=== PATIENT | female | born 1940 | race Caucasian/White ===

== ENCOUNTER 2018-08-14 16:07 | Emergency (ER) | payer MEDICARE ==
[~2018-08-14] VITALS: Ht 165.1 cm; Wt 59.1 kg
[2018-08-14 16:13] VITALS: TEMP 98.4
[2018-08-14 17:03] LABS: BASO % 0.1 % (0.0-2.0); EOS % 0.4 % (0-4.0); GRAN # 5.8 (1.4-6.5); GRAN % 76.7 % (42.2-75.2); HEMATOCRIT 43.8 % (37.0-47.0); HEMOGLOBIN 14.4 g/dl (12.5-16.0); LYMPH # 1.1 (1.2-3.4); LYMPH % 14.9 % (20.0-51.0); MEAN CELL VOLUME 100 fl (80.0-100.0); MEAN CORPUSCULAR HEMOGLOBIN 33 pg (27.0-31.0); MEAN CORPUSCULAR HGB CONC 33 g/dl (33.0-37.0); MEAN PLATELET VOLUME 9.7 fl (7.4-10.4); MONO # 0.6 (0.1-0.6); MONO % 7.5 % (1.7-9.3); PLATELET COUNT 180 K/mm3 (130-400); RED BLOOD COUNT 4.38 M/mm3 (4.10-5.30); REDCELL DISTRIBUTION WIDTH-CV 12.3 % (11.5-14.5)
[2018-08-14 17:11] LABS: ALANINE AMINOTRANSFERASE 36 U/L (9-52); ALKALINE PHOSPHATASE 77 U/L (50-136); ANION GAP 3 mmol/L (7-16); AST,SGOT 36 U/L (15-37); BLOOD UREA NITROGEN 24 mg/dL (7-17); CALCIUM 9.1 mg/dL (8.4-10.2); CARBON DIOXIDE 28 mmol/L (22-30); CHLORIDE 112 mmol/L (98-107); GLUCOSE 130 mg/dL (74-106); LIPASE 54 U/L (23-300); POTASSIUM 4.5 mmol/L (3.4-5.0); SODIUM 144 mmol/L (137-145); TOTAL PROTEIN 7.5 gm/dL (6.4-8.2)
[2018-08-14 17:18] LABS: INR 2.6 (0.8-3.0); PROTHROMBIN TIME 29.2 SECONDS (9.7-12.8)
[2018-08-14 17:23] LABS: TROPONIN-I < 0.012 ng/mL (0.000-0.034)
[2018-08-14 21:11] VITALS: BP 133/95; PULSE 66
== END 2018-08-14 21:29 | disposition home or self-care (01) ==
LOC: COL.ER 16:07
PROVIDERS: Emergency Medicine
DX: R07.89 Other chest pain (principal); I10 Essential (primary) hypertension; E78.5 Hyperlipidemia, unspecified; Z90.710 Acquired absence of both cervix and uterus; Z87.891 Personal history of nicotine dependence
CPT/HCPCS: J7030

== ENCOUNTER 2019-02-08 19:29 | Emergency (ER) | payer MEDICARE ==
[~2019-02-08] VITALS: Ht 165.1 cm; Wt 59.1 kg
[2019-02-08 19:33] VITALS: TEMP 97.7
[2019-02-08] MEDS ORDERED: PRAVACHOL80 MG PO (19:48)
[2019-02-08] MEDS ORDERED: NORVASC 5MG5 MG/TAB PO (19:48)
[2019-02-08] MEDS ORDERED: LASIX 20MG TABL20 MG PO (19:49)
[2019-02-08] MEDS ORDERED: BROMFED DM COU118 ML PO (19:49)
[2019-02-08] MEDS ORDERED: ULTRAM 50MG TAB50 MG PO (19:49)
[2019-02-08] MEDS ORDERED: COUMADIN 3MG3 MG/TAB PO (19:49)
[2019-02-08 20:18] LABS: BASO % 0.4 % (0.0-2.0); EOS # 0.1 (0.0-0.7); EOS % 2.1 % (0-4.0); GRAN # 3.2 (1.4-6.5); GRAN % 59.6 % (42.2-75.2); HEMATOCRIT 41.6 % (37.0-47.0); HEMOGLOBIN 13.8 g/dl (12.5-16.0); LYMPH # 1.4 (1.2-3.4); LYMPH % 26.8 % (20.0-51.0); MEAN CELL VOLUME 97 fl (80.0-100.0); MEAN CORPUSCULAR HEMOGLOBIN 32 pg (27.0-31.0); MEAN CORPUSCULAR HGB CONC 33 g/dl (33.0-37.0); MEAN PLATELET VOLUME 9.5 fl (7.4-10.4); MONO # 0.6 (0.1-0.6); MONO % 10.9 % (1.7-9.3); PLATELET COUNT 179 K/mm3 (130-400); RED BLOOD COUNT 4.29 M/mm3 (4.10-5.30); REDCELL DISTRIBUTION WIDTH-CV 13.1 % (11.5-14.5)
[2019-02-08 20:22] LABS: INR 3.8 (0.8-3.0)
[2019-02-08 20:24] LABS: PROTHROMBIN TIME 46.3 SECONDS (9.7-12.8)
[2019-02-08 20:26] LABS: ALANINE AMINOTRANSFERASE 11 U/L (9-52); ALBUMIN 3.6 gm/dL (3.5-5.0); ALKALINE PHOSPHATASE 82 U/L (50-136); ANION GAP 9 mmol/L (7-16); AST,SGOT 31 U/L (15-37); BILIRUBIN,TOTAL 0.9 mg/dL (0.0-1.0); BLOOD UREA NITROGEN 24 mg/dL (7-17); CALCIUM 9.2 mg/dL (8.4-10.2); CARBON DIOXIDE 25 mmol/L (22-30); CHLORIDE 107 mmol/L (98-107); CREATININE, serum 0.95 (0.52-1.25); GLUCOSE 222 mg/dL (74-106); POTASSIUM 4.1 mmol/L (3.4-5.0); SODIUM 141 mmol/L (137-145)
[2019-02-08 20:45] LABS: TROPONIN-I < 0.012 ng/mL (0.000-0.035)
[2019-02-08 22:35] VITALS: BP 174/95; PULSE 68
== END 2019-02-08 22:35 | disposition home or self-care (01) ==
LOC: COL.ER 19:29
PROVIDERS: Emergency Medicine
DX: S00.33XA Contusion of nose, initial encounter (principal); S20.212A Contusion of left front wall of thorax, initial encounter; I48.91 Unspecified atrial fibrillation; I10 Essential (primary) hypertension; E78.00 Pure hypercholesterolemia, unspecified; Z85.028 Personal history of other malignant neoplasm of stomach; Z79.01 Long term (current) use of anticoagulants; Z95.0 Presence of cardiac pacemaker; W18.09XA Striking against other object with subsequent fall, initial encounter; Y92.009 Unspecified place in unspecified non-institutional (private) residence as the place of occurrence of the external cause

== ENCOUNTER 2019-05-25 09:42 | Day surgery (SDC) | payer MEDICARE ==
[~2019-05-25] VITALS: Ht 165.1 cm; Wt 58.6 kg
[~2019-05-25 09:42] MED LIST: BROMFED DM COU118 ML PO; COUMADIN 3MG3 MG/TAB PO; LASIX 20MG TABL20 MG PO; NORVASC 5MG5 MG/TAB PO; PRAVACHOL80 MG PO; ULTRAM 50MG TAB50 MG PO
[2019-05-25 10:58] VITALS: BP 117/81; PULSE 78; TEMP 98.1
[2019-05-25 12:18] VITALS: BP 142/80; PULSE 76; TEMP 96.6
[2019-05-25 12:33] VITALS: BP 163/86; PULSE 82
[2019-05-25 12:48] VITALS: BP 158/85; PULSE 81
--- NOTE | 2019-05-25 13:36 | NUR ---
pt returned from procedure room into bathroom. PT STATED HAVING TO GO TO THE BATHROOM. HAVING LOOSE STOOLS AND FLATUS. PT DENIES PAIN OR NAUSEA. PT THEN TAKEN TO BAY 4 PER W/C. PT UNSTEADY WHILE STANDING. VSS, LUNGS CLEAR, BOWEL SOUNDS ACTIVE X4 QUADRANT. COKE COLA OFFERED AND TOLERATED. OFFERED APPLESAUCE. PT TOLERATING A FEW BITES WELL. AT BESIDE, CALL LIGHT WITHIN REACH, WILL MONITOR PROGRESSION.
--- NOTE | 2019-05-25 13:50 | NUR ---
PT TOLERATING APPLESAUCE AND SODA WITHOUT C/O NAUSEA/VOMITING. DENIES PAIN. HS AMBULATED TO THE BATHROOM X1 ASSIST. PASSING GAS AND SOFT BROWN STOOL. DENIES PAIN. IVF DC'D. WILL MONITOR PROGRESS.
--- NOTE | 2019-05-25 13:54 | NUR ---
PT UP AMBULATING TO THE BATHROOM. HAVING GAS, LESS STOOL NOTED. PT CONT TO DENY PAIN OR NAUSEA. SIPPING ON SODA. IV DC'D PER RIGHT WRIST AND TOLERATED WELL. DISMISSAL INSTRUCTIONS GIVEN TO PATIENT AND , BOTH VOICE UNDERSTANDING. PT IS DISCHARGED PER W/C FROM HOSPITAL INTO PT FAMILY VEHICLE.
== END 2019-05-25 14:04 | disposition home or self-care (01) ==
LOC: SDCO 09:42
DX: D12.2 Benign neoplasm of ascending colon (principal); K21.0 Gastro-esophageal reflux disease with esophagitis; K31.89 Other diseases of stomach and duodenum; K44.9 Diaphragmatic hernia without obstruction or gangrene; K57.30 Diverticulosis of large intestine without perforation or abscess without bleeding; K63.5 Polyp of colon; J44.9 Chronic obstructive pulmonary disease, unspecified; E78.00 Pure hypercholesterolemia, unspecified; I10 Essential (primary) hypertension; I48.91 Unspecified atrial fibrillation; Z86.010 Personal history of colon polyps; Z88.3 Allergy status to other anti-infective agents; Z90.710 Acquired absence of both cervix and uterus; Z87.891 Personal history of nicotine dependence; Z88.6 Allergy status to analgesic agent; Z85.028 Personal history of other malignant neoplasm of stomach
CPT/HCPCS: J2704; J7030

== ENCOUNTER 2019-07-25 12:18 | Inpatient (IN) | payer MEDICARE ==
[~2019-07-25] VITALS: Ht 165.2 cm; Wt 61.3 kg
[2019-07-25 13:08] LABS: BASO % 0.2 % (0.0-2.0); EOS # 0.1 (0.0-0.7); EOS % 1.2 % (0-4.0); GRAN # 3.4 (1.4-6.5); GRAN % 64.5 % (42.2-75.2); HEMATOCRIT 38.3 % (37.0-47.0); HEMOGLOBIN 12.6 g/dl (12.5-16.0); LYMPH # 1.2 (1.2-3.4); LYMPH % 23.3 % (20.0-51.0); MEAN CELL VOLUME 102 fl (80.0-100.0); MEAN CORPUSCULAR HEMOGLOBIN 34 pg (27.0-31.0); MEAN CORPUSCULAR HGB CONC 33 g/dl (33.0-37.0); MEAN PLATELET VOLUME 9.8 fl (7.4-10.4); MONO # 0.6 (0.1-0.6); MONO % 10.6 % (1.7-9.3); PLATELET COUNT 150 K/mm3 (130-400); RED BLOOD COUNT 3.76 M/mm3 (4.10-5.30); REDCELL DISTRIBUTION WIDTH-CV 13.2 % (11.5-14.5)
[2019-07-25 13:12] LABS: ALANINE AMINOTRANSFERASE 45 U/L (9-52); ALBUMIN 3.8 gm/dL (3.5-5.0); ALKALINE PHOSPHATASE 81 U/L (50-136); ANION GAP 6 mmol/L (7-16); AST,SGOT 46 U/L (15-37); BILIRUBIN,TOTAL 0.7 mg/dL (0.0-1.0); BLOOD UREA NITROGEN 27 mg/dL (7-17); CARBON DIOXIDE 29 mmol/L (22-30); CHLORIDE 109 mmol/L (98-107); CREATININE, serum 0.71 (0.52-1.25); GLUCOSE 112 mg/dL (74-106); POTASSIUM 4.1 mmol/L (3.4-5.0); SODIUM 143 mmol/L (137-145); TOTAL PROTEIN 7.1 gm/dL (6.4-8.2)
[2019-07-25 13:21] LABS: INR 1.8 (0.8-3.0); PROTHROMBIN TIME 21.2 SECONDS (9.7-12.8)
[2019-07-25 13:24] LABS: TROPONIN-I < 0.012 ng/mL (0.000-0.035)
[2019-07-25 16:56] VITALS: BP 104/71; PULSE 121; TEMP 97.8
--- NOTE | 2019-07-25 17:08 | NUR ---
Pt arrived to room 355 from ED. She is awake and A/Ox4, accompanied by her . She transfers without difficulty. Saline lock to left AC is free of complications. She remains on 2L O2 per NC, resp are slighly labored at rest. Meds/allergies/pharm reviewed and verfied. GISSELL Packer at bedside.
[2019-07-25] MEDS ORDERED: PROAIR HFA0.09 MG/AC IH (17:19)
[2019-07-25] MEDS ORDERED: 00186-0372-20 IH (17:19)
[2019-07-25 19:59] VITALS: BP 101/60; PULSE 82; TEMP 99
--- NOTE | 2019-07-25 22:20 | NUR ---
PT IN BED WITH HEAD OF BED ELEVATED. TELE WITH A-FLUTTER WITH RATE BETWEEN 90 - 120. O2 AT 2L/NC. REPORTS GETTING SOA WHEN AMBULATING TO THE BATHROOM. LOPRESSOR 5MG IV GIVEN SCHEDULED. INT INTACT IN L AC. NO EDEMA, NO NAUSEA. CALL LIGHT IN REACH. WATCHES TV.
[2019-07-25 23:24] VITALS: BP 128/75; PULSE 60; TEMP 98.6
[2019-07-26] VITALS (7 sets, daily range): BP systolic 110–131; BP diastolic 64–86; PULSE 68–133; TEMP 97.6–98.6
--- NOTE | 2019-07-26 06:30 | NUR ---
Pt resting with eyes closed. Awakens to verbal stimuli. Lopressor 5mg IV given as scheduled. States she didn't have a very good nigt. Tele showing pt still in A-flutter with HR between 90's to low 100's. INT continues to work well in L FA. Call light in reach.
[2019-07-26 07:17] LABS: BASO % 0.4 % (0.0-2.0); EOS # 0.1 (0.0-0.7); EOS % 2.2 % (0-4.0); GRAN # 3.2 (1.4-6.5); HEMATOCRIT 38.6 % (37.0-47.0); HEMOGLOBIN 12.9 g/dl (12.5-16.0); LYMPH # 1.4 (1.2-3.4); LYMPH % 25.5 % (20.0-51.0); MEAN CELL VOLUME 101 fl (80.0-100.0); MEAN CORPUSCULAR HEMOGLOBIN 34 pg (27.0-31.0); MEAN CORPUSCULAR HGB CONC 33 g/dl (33.0-37.0); MONO # 0.7 (0.1-0.6); MONO % 12.7 % (1.7-9.3); PLATELET COUNT 151 K/mm3 (130-400); RED BLOOD COUNT 3.83 M/mm3 (4.10-5.30); REDCELL DISTRIBUTION WIDTH-CV 13.1 % (11.5-14.5)
[2019-07-26 07:21] LABS: INR 1.6 (0.8-3.0); PROTHROMBIN TIME 18.9 SECONDS (9.7-12.8)
[2019-07-26 07:32] LABS: CALCIUM 9.1 mg/dL (8.4-10.2); CREATININE, serum 0.75 (0.52-1.25); MAGNESIUM 1.8 mg/dL (1.6-2.3); POTASSIUM 3.7 mmol/L (3.4-5.0)
--- NOTE | 2019-07-26 08:30 | NUR ---
Assessment complete. Pt resting in bed with eyes closed, awakens briefly to verbal stimuli, denies pain or needs. O2 at 2 L/min via NC. Call light in reach.
--- NOTE | 2019-07-26 15:08 | NUR ---
SERGIO met with the patient and her , Greg to discuss a discharge plan. The patient lives in [place] with Greg. The patient uses oxygen she bought on her own, did not use insurance for purchase. The patient reports independence with ADLs. The patient's PCP is Dr. Elicia Morrison and patient receives medications from [facility] via mail and [facility] in with no difficulties. The patient does not have advanced directives in the EMR. A DPOA-HC form was left with the patient. The patient plans to return home upon discharge with Greg providing transportation. There are no additional needs at this time.
--- NOTE | 2019-07-26 15:26 | NUR ---
Pt to physical laboratory assistant for procedure via bed.
--- NOTE | 2019-07-26 21:00 | NUR ---
patient in A flutter with RVR. rate 100. patient asympotomatic. VSS. will continue to monitor.
[2019-07-27] VITALS (13 sets, daily range): BP systolic 77–145; BP diastolic 44–78; PULSE 62–110; TEMP 97.6–98.9
--- NOTE | 2019-07-27 01:26 | NUR ---
patient doing well throughout night. denies pain or need for pain medication. states she is tired. took scheduled medications without difficulty. sotolol was started tonight. NPO per lexiscan stress test tomorrow morning. INT to hand is patent and flushes with ease. denies any further needs. will continue to monitor.
[2019-07-27 07:25] LABS: BASO % 0.4 % (0.0-2.0); EOS # 0.1 (0.0-0.7); EOS % 1.5 % (0-4.0); GRAN # 3.2 (1.4-6.5); GRAN % 62.3 % (42.2-75.2); HEMATOCRIT 40.9 % (37.0-47.0); HEMOGLOBIN 13.9 g/dl (12.5-16.0); LYMPH # 1.2 (1.2-3.4); LYMPH % 22.7 % (20.0-51.0); MEAN CELL VOLUME 99 fl (80.0-100.0); MEAN CORPUSCULAR HEMOGLOBIN 34 pg (27.0-31.0); MEAN CORPUSCULAR HGB CONC 34 g/dl (33.0-37.0); MEAN PLATELET VOLUME 9.6 fl (7.4-10.4); MONO # 0.7 (0.1-0.6); MONO % 12.9 % (1.7-9.3); PLATELET COUNT 167 K/mm3 (130-400); RED BLOOD COUNT 4.12 M/mm3 (4.10-5.30); REDCELL DISTRIBUTION WIDTH-CV 12.9 % (11.5-14.5)
[2019-07-27 07:30] LABS: INR 1.8 (0.8-3.0); PROTHROMBIN TIME 21.2 SECONDS (9.7-12.8)
[2019-07-27 07:41] LABS: CALCIUM 9.5 mg/dL (8.4-10.2); CREATININE, serum 0.86 (0.52-1.25)
--- NOTE | 2019-07-27 08:00 | NUR ---
Assessment complete. Pt sitting up in bed, A&O x 4. Breath sounds CTAB. Heart sounds irregular. BS active x 4. Pt denies pain, reports return of increased shortness of breath. Saline lock IV to left AC, no s/s of infiltration or phlebitis. POC reviewed with pt. No further needs reported. Call light in reach.
--- NOTE | 2019-07-27 09:15 | NUR ---
[facility] to [facility] for testing via .
--- NOTE | 2019-07-27 14:52 | NUR ---
First visit from the paper pattern inspector. No needs right now.
[2019-07-28 03:22] VITALS: BP 113/61; PULSE 50; TEMP 98.6
[2019-07-28 07:25] LABS: BASO % 0.2 % (0.0-2.0); EOS # 0.1 (0.0-0.7); EOS % 2.2 % (0-4.0); GRAN # 2.1 (1.4-6.5); GRAN % 46.1 % (42.2-75.2); HEMATOCRIT 39.9 % (37.0-47.0); HEMOGLOBIN 13.3 g/dl (12.5-16.0); LYMPH # 1.7 (1.2-3.4); LYMPH % 36.5 % (20.0-51.0); MEAN CELL VOLUME 101 fl (80.0-100.0); MEAN CORPUSCULAR HEMOGLOBIN 34 pg (27.0-31.0); MEAN CORPUSCULAR HGB CONC 33 g/dl (33.0-37.0); MONO # 0.7 (0.1-0.6); MONO % 14.8 % (1.7-9.3); PLATELET COUNT 157 K/mm3 (130-400); RED BLOOD COUNT 3.95 M/mm3 (4.10-5.30); REDCELL DISTRIBUTION WIDTH-CV 12.8 % (11.5-14.5)
[2019-07-28 07:30] LABS: INR 2.6 (0.8-3.0); PROTHROMBIN TIME 30.7 SECONDS (9.7-12.8)
[2019-07-28 07:35] LABS: CALCIUM 9.2 mg/dL (8.4-10.2); CREATININE, serum 0.89 (0.52-1.25)
--- NOTE | 2019-07-28 08:00 | NUR ---
Patient in bed resting. Alert and oriented x 3. Shift assessment complete. Patient denies pain or further needs at this time. INT to right hand patent.
[2019-07-28 08:45] VITALS: BP 119/65; PULSE 77; TEMP 97.6
[2019-07-28 12:00] VITALS: BP 141/86; PULSE 90; TEMP 97.8
[2019-07-28] MEDS ORDERED: BETAPACE 80MG80 MG PO (14:05)
[2019-07-28] MEDS ORDERED: LASIX 20MG TABL20 MG PO (14:06)
[2019-07-28 15:46] VITALS: BP 139/69; PULSE 62; TEMP 97.9
--- NOTE | 2019-07-28 17:15 | NUR ---
Discharge education provided to patient. Educated on new medications and follow up appointments. All questions answered. INT to right hand discontinued. Denies further needs at this time. Patient out by wheelchair with spouse.
== END 2019-07-28 17:15 | disposition home or self-care (01) | DRG 308 ==
LOC: COL.ER 12:18 → MEDICAL 14:51
PROVIDERS: Family Medicine; Nurse Practitioner; Nurse Practitioner Family; Physician Assistant; ADMIT Internal Medicine
DX: I48.92 Unspecified atrial flutter (principal); I50.23 Acute on chronic systolic (congestive) heart failure; J96.10 Chronic respiratory failure, unspecified whether with hypoxia or hypercapnia; I48.0 Paroxysmal atrial fibrillation; I95.9 Hypotension, unspecified; J44.9 Chronic obstructive pulmonary disease, unspecified; I11.0 Hypertensive heart disease with heart failure; Z85.028 Personal history of other malignant neoplasm of stomach; Z90.710 Acquired absence of both cervix and uterus; Z95.0 Presence of cardiac pacemaker; Z93.1 Gastrostomy status
CPT/HCPCS: 99222-AI; 99232-AI; 99239; A9500; J1160; J1650; J1940; J2704; J2785

== ENCOUNTER 2019-08-18 | Inpatient (IN) | payer MEDICARE ==
[~2019-08-18] VITALS: Ht 165.1 cm; Wt 61.8 kg
[~2019-08-18] MED LIST changes: +00186-0372-20 IH; +BETAPACE 80MG80 MG PO; +PROAIR HFA0.09 MG/AC IH
[2019-08-18] MEDS ORDERED: NORVASC 5MG5 MG/TAB PO (08:42)
[2019-08-18] MEDS ORDERED: HAIRSKINNAILS PO (08:44)
[2019-08-18 10:13] LABS: HEMATOCRIT 42.9 % (37.0-47.0); HEMOGLOBIN 14.2 g/dl (12.5-16.0); MEAN CELL VOLUME 101 fl (80.0-100.0); MEAN CORPUSCULAR HEMOGLOBIN 33 pg (27.0-31.0); MEAN CORPUSCULAR HGB CONC 33 g/dl (33.0-37.0); MEAN PLATELET VOLUME 9.6 fl (7.4-10.4); PLATELET COUNT 148 K/mm3 (130-400); RED BLOOD COUNT 4.27 M/mm3 (4.10-5.30); REDCELL DISTRIBUTION WIDTH-CV 12.4 % (11.5-14.5)
[2019-08-18 10:23] LABS: INR 4.6 (0.8-3.0)
[2019-08-18 10:27] LABS: CALCIUM 8.8 mg/dL (8.4-10.2); CREATININE, serum 0.68 (0.52-1.25); POTASSIUM 4.5 mmol/L (3.4-5.0)
[2019-08-18 10:29] LABS: PARTIAL THROMBOPLASTIN TIME 54.7 SECONDS (26.0-37.0); PROTHROMBIN TIME 56.5 SECONDS (9.7-12.8)
[2019-08-18 10:56] LABS: THYROID STIMULATING HORMONE 1.38 uIU/mL (0.465-4.680)
--- NOTE | 2019-08-18 12:30 | NUR ---
REPORT GIVEN TO FARNAZ HALL ON MEDICAL FLOOR. HE WAS MADE AWARE OF PT'S CRITICAL PTT AND INR VALUES THAT WERE REPORTED TO ME FROM THE LAB AT 1029. ISABEL ALSO MADE AWARE THAT AMIODARONE WAS GIVEN AROUND 1200 AND PHARMACY HAS ADJUSTED THE TIMES FOR FUTURE DOSAGES. OXANA AT PT'S BEDSIDE.
--- NOTE | 2019-08-18 14:16 | NUR ---
PFT will be completed Wednesday at 10:00. Marques Nix, TECHNICAL LABORATORY ASST
[2019-08-18 15:56] VITALS: BP 115/68; PULSE 63; TEMP 97
[2019-08-18 19:06] VITALS: BP 109/53; PULSE 92; TEMP 97.8
--- NOTE | 2019-08-18 19:10 | NUR ---
patient arrived to Medical floor room 315 at this time, she is alert/oriented, present in room, denies needs
--- NOTE | 2019-08-18 20:15 | NUR ---
Report rcvd from FARNAZ Schilling. Pt sitting in bed. No c/o pain or discomfort at this time. Assessment completed. Current plan for pt is x5 days on amiodarone. No further concern at this time. Pt call light and phone within reach.
[2019-08-18 23:51] VITALS: BP 119/73; PULSE 74; TEMP 98
[2019-08-19 04:07] VITALS: BP 101/57; PULSE 89; TEMP 97.9
--- NOTE | 2019-08-19 07:14 | NUR ---
Report given to FARNAZ Zabala. No further concerns.
[2019-08-19 08:13] LABS: BASO % 0.3 % (0.0-2.0); EOS # 0.1 (0.0-0.7); EOS % 1.5 % (0-4.0); GRAN # 4.4 (1.4-6.5); GRAN % 65.9 % (42.2-75.2); HEMATOCRIT 39.7 % (37.0-47.0); HEMOGLOBIN 13.2 g/dl (12.5-16.0); LYMPH # 1.3 (1.2-3.4); LYMPH % 19.9 % (20.0-51.0); MEAN CELL VOLUME 100 fl (80.0-100.0); MEAN CORPUSCULAR HEMOGLOBIN 33 pg (27.0-31.0); MEAN CORPUSCULAR HGB CONC 33 g/dl (33.0-37.0); MONO # 0.8 (0.1-0.6); MONO % 12.1 % (1.7-9.3); PLATELET COUNT 140 K/mm3 (130-400); RED BLOOD COUNT 3.96 M/mm3 (4.10-5.30); REDCELL DISTRIBUTION WIDTH-CV 12.5 % (11.5-14.5)
[2019-08-19 08:30] VITALS: BP 115/76; PULSE 67; TEMP 97.7
[2019-08-19 08:54] LABS: ALBUMIN 3.7 gm/dL (3.5-5.0); BILIRUBIN,TOTAL 1.2 mg/dL (0.0-1.0); CALCIUM 8.8 mg/dL (8.4-10.2); CREATININE, serum 0.75 (0.52-1.25); TOTAL PROTEIN 6.9 gm/dL (6.4-8.2)
--- NOTE | 2019-08-19 09:00 | NUR ---
Assessment complete. Pt sitting up in bed, A&O x 4. Breath sounds CTAB. BS active x 4. Pt denies pain or needs at this time. Saline lock IV to left wrist without s/s of complications. POC reviewed with pt. Call light in reach.
--- NOTE | 2019-08-19 10:49 | NUR ---
Visited, listened, and provided spiritual care.
[2019-08-19 11:54] VITALS: BP 137/60; PULSE 74; TEMP 97.8
--- NOTE | 2019-08-19 13:23 | NUR ---
Plan: Patient plans to return home with her in [place]. Assess: Patient reports that she resides in with her spouse Mason [phone] or . Patient reports that she uses 02 at home 2 liters. Patient reports that her spouse will transport her home. Patient reports [facility] in [place] for RX. Patient denies having a PCP. Patient indicated that she has care concerns from the overnight. SW notified house of concerns. Action: No additional needs identifed. SW educated patient on additonal resources.
[2019-08-19 15:50] VITALS: BP 129/81; PULSE 56; TEMP 97.6
--- NOTE | 2019-08-19 17:34 | NUR ---
Pt has been ambulating in rm and hallway with steady gait intermittently throughout the shift, denies c/o or needs.
[2019-08-19 19:52] VITALS: BP 96/62; PULSE 80; TEMP 98.2
--- NOTE | 2019-08-19 20:00 | NUR ---
Report received from FARNAZ Zabala. Pt sitting up in bed with at bedside. Alert and oriented. Denies any pain or discomfort at this time. Meds given as ordered. INT to LW intact, patent, dressing CDI. Needs met. Call light within reach.
[2019-08-20] VITALS (7 sets, daily range): BP systolic 85–109; BP diastolic 43–76; PULSE 65–87; TEMP 97.8–98.6
--- NOTE | 2019-08-20 06:51 | NUR ---
Report given to FARNAZ Zabala.
[2019-08-20 06:57] LABS: BASO % 0.1 % (0.0-2.0); EOS # 0.1 (0.0-0.7); EOS % 1.4 % (0-4.0); GRAN # 4.5 (1.4-6.5); GRAN % 62.4 % (42.2-75.2); HEMATOCRIT 40.9 % (37.0-47.0); HEMOGLOBIN 13.8 g/dl (12.5-16.0); LYMPH # 1.6 (1.2-3.4); MEAN CELL VOLUME 100 fl (80.0-100.0); MEAN CORPUSCULAR HEMOGLOBIN 34 pg (27.0-31.0); MEAN CORPUSCULAR HGB CONC 34 g/dl (33.0-37.0); MEAN PLATELET VOLUME 10.1 fl (7.4-10.4); MONO % 13.8 % (1.7-9.3); PLATELET COUNT 152 K/mm3 (130-400); REDCELL DISTRIBUTION WIDTH-CV 12.6 % (11.5-14.5)
[2019-08-20 07:10] LABS: BILIRUBIN,TOTAL 1.4 mg/dL (0.0-1.0); CALCIUM 9.2 mg/dL (8.4-10.2); CREATININE, serum 0.91 (0.52-1.25); POTASSIUM 4.2 mmol/L (3.4-5.0); TOTAL PROTEIN 7.5 gm/dL (6.4-8.2)
[2019-08-20 07:15] LABS: INR 1.6 (0.8-3.0); PROTHROMBIN TIME 18.7 SECONDS (9.7-12.8)
--- NOTE | 2019-08-20 07:38 | NUR ---
Assessment complete. Pt sitting up in bed, drowsy, alert to stimuli, oriented x 4. Physical assessment unremarkable. O2 at 2 L/min via NC. Pt denies pain or needs at this time. Call light in reach.
--- NOTE | 2019-08-20 13:30 | NUR ---
Pt ambulating in hallway accompanied by PUBLIC SAF[employer]Y POLICE. Pt with increasing dysnea, uses W/C to return to room.
[2019-08-20 13:48] LABS: RHEUMATOID FACTOR-SCREEN <15 IU/mL (0-29)
--- NOTE | 2019-08-20 18:50 | NUR ---
Report with FARNAZ Ojeda. Pt sitting up in bed, denies needs at this time. Call light in reach.
--- NOTE | 2019-08-20 20:05 | NUR ---
Shift assessment complete. Pt resting in bed, awake, a&o, cooperative c cares. Pt denies pain or other c/o. INT patent. O2 per NC. Pt denies needs at this time. Call light in reach, will continue to monitor.
[2019-08-21] VITALS (13 sets, daily range): BP systolic 105–144; BP diastolic 49–86; PULSE 56–100; TEMP 97.5–98.4
[2019-08-21 06:47] LABS: BASO % 0.4 % (0.0-2.0); EOS # 0.1 (0.0-0.7); EOS % 1.8 % (0-4.0); GRAN # 2.9 (1.4-6.5); GRAN % 54.2 % (42.2-75.2); HEMATOCRIT 40.8 % (37.0-47.0); HEMOGLOBIN 13.6 g/dl (12.5-16.0); LYMPH # 1.5 (1.2-3.4); LYMPH % 27.7 % (20.0-51.0); MEAN CELL VOLUME 100 fl (80.0-100.0); MEAN CORPUSCULAR HEMOGLOBIN 33 pg (27.0-31.0); MEAN CORPUSCULAR HGB CONC 33 g/dl (33.0-37.0); MONO # 0.9 (0.1-0.6); MONO % 15.7 % (1.7-9.3); PLATELET COUNT 143 K/mm3 (130-400); RED BLOOD COUNT 4.07 M/mm3 (4.10-5.30); REDCELL DISTRIBUTION WIDTH-CV 12.6 % (11.5-14.5)
[2019-08-21 06:57] LABS: INR 1.2 (0.8-3.0); PROTHROMBIN TIME 14.1 SECONDS (9.7-12.8)
[2019-08-21 07:03] LABS: ALBUMIN 3.9 gm/dL (3.5-5.0); BILIRUBIN,TOTAL 1.2 mg/dL (0.0-1.0); CALCIUM 9.2 mg/dL (8.4-10.2); CREATININE, serum 1.01 (0.52-1.25); POTASSIUM 4.1 mmol/L (3.4-5.0); TOTAL PROTEIN 7.3 gm/dL (6.4-8.2)
--- NOTE | 2019-08-21 11:02 | NUR ---
Assessment completed, alert/oriented, vital signs stable, stated she "feels about the same", still gets SOA easily, scheduled for lung mass bx today with radiology, [facility] is puting heart cath on hold untill Wednesdays, lungs CTA/ diminished, heart irreg/ A.fib on tele, present in room, patient NPo, they understand plan of care, deny othe needs at this time
--- NOTE | 2019-08-21 12:51 | NUR ---
First visit from the wood calker. No needs right now.
--- NOTE | 2019-08-21 14:00 | NUR ---
PT BROUGHT DOWN IN HER BED . PT TRANSFERED TO CT TABLE AND MONITORING EQUIPMENT PLACED. IMAGING DONE AND SENT TO .
--- NOTE | 2019-08-21 14:20 | NUR ---
PT HAD INTERMITTENT A FIB ON THE MONITOR. PT WAS TURNED ON HER BACK AND SCANNED. VERY SMALL PNUEMOTHORAX NOTED. WILL HAVE CXR IN 1 HOUR.
--- NOTE | 2019-08-21 14:35 | NUR ---
PT TAKEN TO HER ROOM IN HER BED. FAMILY PRESENT. REPORTED TO ISABEL HER NURSE THAT SHE IS SETTLED IN HER ROOM, O2 @ 2L/NC AND WILL NEED CXR IN 1 HOUR.
--- NOTE | 2019-08-21 15:55 | NUR ---
Correctional Maintenance Technician met with patient to discuss discharge plan. Patient lives in [place] with her , Greg (ph#[phone]). Patient sees Nurse Practitioner, Elicia Morrison for primary care and obtains medications from [facility] pharmacy with no difficulty. Patient uses oxygen at home and reports her purchased needed equipment online. Patient does not have Advance Directives and is not interested in setting them up at this time. Patient plans to return home upon discharge.
[2019-08-21 20:10] LABS: ANA SCREEN with REFLEX Positive (Negative)
--- NOTE | 2019-08-21 20:30 | NUR ---
Initial assessment done- denies any pain, tele on- afib/paced, sitting up in bed, just finished a late supper, o2 at 2L/nc, no requests at this time, VSS
[2019-08-22 04:17] VITALS: BP 109/54; PULSE 86; TEMP 98.3
--- NOTE | 2019-08-22 06:00 | NUR ---
Quiet night- slept well, VSS, no requests throughout the night- o2 at 2L/nc
[2019-08-22 07:06] LABS: INR 1.1 (0.8-3.0); PROTHROMBIN TIME 12.5 SECONDS (9.7-12.8)
[2019-08-22 07:12] LABS: ALBUMIN 4.3 gm/dL (3.5-5.0); CALCIUM 9.6 mg/dL (8.4-10.2); CREATININE, serum 1.03 (0.52-1.25); MAGNESIUM 2.1 mg/dL (1.6-2.3); POTASSIUM 4.3 mmol/L (3.4-5.0)
[2019-08-22 07:27] LABS: BASO % 0.4 % (0.0-2.0); EOS # 0.1 (0.0-0.7); EOS % 2.1 % (0-4.0); GRAN # 2.5 (1.4-6.5); GRAN % 52.6 % (42.2-75.2); HEMATOCRIT 43.3 % (37.0-47.0); HEMOGLOBIN 14.3 g/dl (12.5-16.0); LYMPH # 1.3 (1.2-3.4); LYMPH % 27.5 % (20.0-51.0); MEAN CELL VOLUME 101 fl (80.0-100.0); MEAN CORPUSCULAR HEMOGLOBIN 33 pg (27.0-31.0); MEAN CORPUSCULAR HGB CONC 33 g/dl (33.0-37.0); MEAN PLATELET VOLUME 10.5 fl (7.4-10.4); MONO # 0.8 (0.1-0.6); MONO % 17.2 % (1.7-9.3); PLATELET COUNT 151 K/mm3 (130-400); REDCELL DISTRIBUTION WIDTH-CV 12.7 % (11.5-14.5)
[2019-08-22 07:51] VITALS: BP 102/66; PULSE 102; TEMP 98.2
--- NOTE | 2019-08-22 08:42 | NUR ---
Assessment completed, alert/oriented, vital signs stable, denies pain this morning, still feeling SOA with exertion , lungs are CTA but diminished throughout, heart Irregular/ paced with underlying A.fib on tele, distal pulses are palpable, patient reports feeling "about the same, NO worse and No better", she is still on 2L.O2, she is sitting up in bed eating breakfast, denies othr needs at this time, will continue to monitor
[2019-08-22 11:26] VITALS: BP 89/44; PULSE 69; TEMP 98.7
[2019-08-22 12:51] LABS: ANGIOTENSIN CONVERTING ENZYME 30 U/L (16 - 85)
[2019-08-22 16:08] VITALS: BP 102/62; PULSE 71; TEMP 97.8
--- NOTE | 2019-08-22 19:36 | NUR ---
Assessment complete. In bed, watching tv. Voices understanding regarding heart cath tomorrow. Denies needs at this time.
[2019-08-22 19:59] VITALS: BP 113/59; PULSE 77; TEMP 97.8
[2019-08-22 23:39] VITALS: BP 111/61; PULSE 72; TEMP 97.9
[2019-08-23] VITALS (13 sets, daily range): BP systolic 90–117; BP diastolic 44–76; PULSE 84–115; TEMP 97.5–98
[2019-08-23 06:28] LABS: HEMATOCRIT 40.9 % (37.0-47.0); HEMOGLOBIN 13.7 g/dl (12.5-16.0); MEAN CELL VOLUME 100 fl (80.0-100.0); MEAN CORPUSCULAR HEMOGLOBIN 34 pg (27.0-31.0); MEAN CORPUSCULAR HGB CONC 34 g/dl (33.0-37.0); PLATELET COUNT 150 K/mm3 (130-400); RED BLOOD COUNT 4.09 M/mm3 (4.10-5.30); REDCELL DISTRIBUTION WIDTH-CV 12.6 % (11.5-14.5)
[2019-08-23 06:37] LABS: CALCIUM 9.2 mg/dL (8.4-10.2); CREATININE, serum 1.05 (0.52-1.25); MAGNESIUM 2.1 mg/dL (1.6-2.3); POTASSIUM 4.2 mmol/L (3.4-5.0); TOTAL PROTEIN 7.6 gm/dL (6.4-8.2)
[2019-08-23 06:53] LABS: PROTHROMBIN TIME 11.2 SECONDS (9.7-12.8)
[2019-08-23 06:56] LABS: PARTIAL THROMBOPLASTIN TIME 30.3 SECONDS (26.0-37.0)
[2019-08-23 07:00] LABS: BAND 8 % (0-10); LYMPHOCYTE 27 % (20.0-51.0); NEUTROPHILS 51 % (42.0-75.2); PLATELET ESTIMATE NORMAL (NORMAL)
--- NOTE | 2019-08-23 09:40 | NUR ---
Patient left the floor at this time for labor supervisor. Consents signed. No other needs at this time. at bedside. Patient is tearful
--- NOTE | 2019-08-23 09:47 | NUR ---
AM assessment completed. Patient is awake; alert and oriented x 3. Denies any pain/discomfort. Skin w/d. Color pale/pink. Patient is tearful this AM due to increasing things going on at this time. Cardiology here and will take patient soon for heart cath. Lungs diminshed in bases. Resp even/unlabored. Patient has non-productive cough. HR strong/irregular. Abd soft with bowel sounds x 4 quads. Patient reports no problems urinating. Call light in place. [place] fluids hanging and infusing to left hand. No other needs at this time. at bedside
--- NOTE | 2019-08-23 10:00 | NUR ---
SEE MERGE FOR MEDICATION ADMINISTRATION TIMES AND INTRA AND POST SEDATION ASSESSMENTS.
[2019-08-23] MEDS ORDERED: CORDARONE200 MG/TAB PO ×2 (11:13→11:14)
[2019-08-23] MEDS ORDERED: TOPROL XL 50MG50 MG PO (11:15)
[2019-08-23] MEDS ORDERED: LASIX 20MG TABL20 MG PO (11:16)
[2019-08-23] MEDS ORDERED: INCRUSE EL62.5 MCG/A IH (11:19)
--- NOTE | 2019-08-23 11:37 | NUR ---
BEDSIDE HAND OFF REPORT GIVEN TO FARNAZ CHISHOLM. HEMOSTASIS MAINTAINED TO R GROIN. DRESSING C/D/I. SKIN SOFT. PEDAL PULSES 2+, CAP REFILL <3. PT DROWSY, BUT RESPONDS TO VERBAL COMMANDS. AT BEDSIDE. IV IN PLACE WITH NS INFUSING AT 100ML/HR
--- NOTE | 2019-08-23 11:53 | NUR ---
Patient returned from [employer] [facility] [employer]. FARNAZ Quiroz from laboratory scientist expressed this nurses concern to Dr. Dawson regarding flat time; as patient has coughing episodes with her wanting to sit up. If needed may try bilateral knee immobilizer's to encourage patient from sitting up. Patient is very drowsy following procedure. There was an failed attempt of cardioversion x 3 with 200J per shock. Dressing CD&I. Area soft and free of hematoma. at bedside. Instructions given to about flat time. VS taken 117/68 - 91 - 18- 94% on 2L/NC
--- NOTE | 2019-08-23 12:10 | NUR ---
Met with pt's after her return from the minilab operator. Family has just recieved the news that she has cancer in her lung diagnosed from her biopsy. 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 Pt is still quite drowsy and unable to participate in the discussion. Dr Vidales advises me that most of her workup for this will be done as an outpatient. I did talk about general cancer care, chemotherapy vs radiation therapy vs other management options. Pt is 78 years old and per may or may not pursue treatment..."that will be up to her". I encouraged him to write down some of the questions that they have when meeting with the doctors. He is wisely waiting for treatment options to be presented and then they will decide from there what she would want to do. Much support provided and will be available to this family as needed.
--- NOTE | 2019-08-23 13:26 | NUR ---
Patient continues to sleep. at bedside
--- NOTE | 2019-08-23 15:45 | NUR ---
Flat time is up. Patient assisted up to sitting position without difficulty. No c/o dizziness or lightheadness. Dressing to right groin CD&I without any noted s/s of hematoma
--- NOTE | 2019-08-23 17:53 | NUR ---
INT discontinued and tele removed. Patient is ready for discharge. Dressing to groin CD&I without any drainage. Area soft. Cardiac Cath discharge instructions reviewed with patient and her . No other needs at this time
--- NOTE | 2019-08-23 18:20 | NUR ---
Discharge instructions reviewed with patient and her . Questions answered. Patient discharged to home at this time
[2019-08-23 21:48] LABS: C-ANCA 6 U/mL (0-99)
== END 2019-08-23 18:20 | disposition home or self-care (01) | DRG 287 ==
LOC: COL.CAR → MEDICAL 13:16 → COL.CAR 13:16 → MEDICAL 13:34 → COL.CAR 13:35 → MEDICAL 08-20 13:16 → COL.CAR 08-21 → MEDICAL 08-21
PROVIDERS: Internal Medicine Pulmonary Disease; Nurse Practitioner; ADMIT Internal Medicine Cardiovascular Disease
PROC: 4A023N8 Measurement of Cardiac Sampling and Pressure, Bilateral, Percutaneous Approach (ICD-10-PCS; principal; 2019-08-18)
PROC: B2111ZZ Fluoroscopy of Multiple Coronary Arteries using Low Osmolar Contrast (ICD-10-PCS; 2019-08-18)
PROC: B2151ZZ Fluoroscopy of Left Heart using Low Osmolar Contrast (ICD-10-PCS; 2019-08-18)
PROC: 5A2204Z Restoration of Cardiac Rhythm, Single (ICD-10-PCS; 2019-08-18)
PROC: 0BBJ3ZX Excision of Left Lower Lung Lobe, Percutaneous Approach, Diagnostic (ICD-10-PCS; 2019-08-21)
DX: I48.0 Paroxysmal atrial fibrillation (principal); J96.11 Chronic respiratory failure with hypoxia; C34.92 Malignant neoplasm of unspecified part of left bronchus or lung; I50.22 Chronic systolic (congestive) heart failure; I27.20 Pulmonary hypertension, unspecified; J44.9 Chronic obstructive pulmonary disease, unspecified; E78.5 Hyperlipidemia, unspecified; K21.9 Gastro-esophageal reflux disease without esophagitis; I11.0 Hypertensive heart disease with heart failure; Z95.0 Presence of cardiac pacemaker; Z85.028 Personal history of other malignant neoplasm of stomach; Z92.21 Personal history of antineoplastic chemotherapy; Z79.01 Long term (current) use of anticoagulants; Z87.891 Personal history of nicotine dependence
CPT/HCPCS: OP; 99231-AI; 99232-AI; 99233-AI; J1200; J1644; J1650; J2704; J2930; J3010; Q9967

== ENCOUNTER 2019-11-28 18:29 | Emergency (ER) | payer MEDICARE ==
[~2019-11-28 18:29] MED LIST changes: +CORDARONE200 MG/TAB PO; +HAIRSKINNAILS PO; +INCRUSE EL62.5 MCG/A IH; +TOPROL XL 50MG50 MG PO
[2019-11-28 18:32] VITALS: TEMP 97.3
[2019-11-28 19:42] LABS: BASO % 0.1 % (0.0-2.0); EOS # 0.1 (0.0-0.7); GRAN # 5.1 (1.4-6.5); HEMATOCRIT 40.3 % (37.0-47.0); HEMOGLOBIN 13.5 g/dl (12.5-16.0); LYMPH # 0.8 (1.2-3.4); LYMPH % 11.2 % (20.0-51.0); MEAN CELL VOLUME 101 fl (80.0-100.0); MEAN CORPUSCULAR HEMOGLOBIN 34 pg (27.0-31.0); MEAN CORPUSCULAR HGB CONC 34 g/dl (33.0-37.0); MEAN PLATELET VOLUME 8.9 fl (7.4-10.4); MONO # 0.8 (0.1-0.6); MONO % 12.4 % (1.7-9.3); PLATELET COUNT 161 K/mm3 (130-400); REDCELL DISTRIBUTION WIDTH-CV 13.2 % (11.5-14.5)
[2019-11-28 19:56] LABS: BILIRUBIN,TOTAL 1.5 mg/dL (0.0-1.0); C-REACTIVE PROTEIN 1.2 mg/dL (0.0-0.9); CREATININE, serum 0.92 (0.52-1.25); POTASSIUM 4.1 mmol/L (3.4-5.0); TOTAL PROTEIN 7.5 gm/dL (6.4-8.2)
[2019-11-28 20:27] LABS: COLLECTION METHOD CLEAN CATCH
[2019-11-28 20:35] LABS: MUCOUS Present /lpf; PH 6 (5-8); SQUAMOUS EPITHELIAL 0-2 /hpf; URINE APPEARANCE Hazy; URINE BACTERIA Occasional /hpf; URINE BILIRUBIN Negative (NEGATIVE); URINE BLOOD 3+ (NEGATIVE); URINE COLOR Yellow; URINE GLUCOSE Negative (NEGATIVE); URINE KETONE Negative (NEGATIVE); URINE LEUKOCYTE ESTERASE Negative (NEGATIVE); URINE NITRATE Negative (NEGATIVE); URINE PROTEIN(semi-quant) Negative (NEGATIVE); URINE RBC >50 /hpf
[2019-11-28 20:38] LABS: PROTHROMBIN TIME 151.7 SECONDS (9.7-12.8)
[2019-11-28] MEDS ORDERED: NORCO 325 MG-51 TAB PO (21:37)
[2019-11-28 21:58] VITALS: BP 137/82; PULSE 72
== END 2019-11-28 21:58 | disposition home or self-care (01) ==
LOC: COL.ER 18:29
PROVIDERS: Family Medicine
DX: K55.9 Vascular disorder of intestine, unspecified (principal); I48.91 Unspecified atrial fibrillation; I10 Essential (primary) hypertension; J44.9 Chronic obstructive pulmonary disease, unspecified; Z79.01 Long term (current) use of anticoagulants; Z95.0 Presence of cardiac pacemaker
CPT/HCPCS: J1170; J7120; Q9967

== ENCOUNTER 2020-01-29 08:05 | Emergency (ER) | payer MEDICARE ==
[~2020-01-29] VITALS: Ht 165.1 cm; Wt 54.5 kg
[~2020-01-29 08:05] MED LIST changes: +NORCO 325 MG-51 TAB PO
[2020-01-29 08:15] VITALS: TEMP 97.6
[2020-01-29 08:49] LABS: BASO % 0.1 % (0.0-2.0); EOS % 0.3 % (0-4.0); GRAN # 5.9 (1.4-6.5); GRAN % 81.9 % (42.2-75.2); HEMOGLOBIN 11.2 g/dl (12.5-16.0); LYMPH # 0.6 (1.2-3.4); LYMPH % 7.6 % (20.0-51.0); MEAN CELL VOLUME 102 fl (80.0-100.0); MEAN CORPUSCULAR HEMOGLOBIN 34 pg (27.0-31.0); MEAN CORPUSCULAR HGB CONC 33 g/dl (33.0-37.0); MEAN PLATELET VOLUME 8.8 fl (7.4-10.4); MONO # 0.7 (0.1-0.6); MONO % 9.4 % (1.7-9.3); PLATELET COUNT 143 K/mm3 (130-400); RED BLOOD COUNT 3.32 M/mm3 (4.10-5.30); REDCELL DISTRIBUTION WIDTH-CV 12.7 % (11.5-14.5)
[2020-01-29 09:01] LABS: ALANINE AMINOTRANSFERASE 39 U/L (4-34); ALBUMIN 4.1 gm/dL (3.5-5.0); ALKALINE PHOSPHATASE 121 U/L (50-136); ANION GAP 9 mmol/L (7-16); AST,SGOT 52 U/L (15-37); BILIRUBIN,TOTAL 1.5 mg/dL (0.0-1.0); BLOOD UREA NITROGEN 19 mg/dL (7-17); CALCIUM 8.9 mg/dL (8.4-10.2); CARBON DIOXIDE 26 mmol/L (22-30); CHLORIDE 102 mmol/L (98-107); GLUCOSE 201 mg/dL (74-106); POTASSIUM 4.3 mmol/L (3.4-5.0); SODIUM 136 mmol/L (137-145); TOTAL PROTEIN 7.5 gm/dL (6.4-8.2)
[2020-01-29 09:12] LABS: INR 11.9 (0.8-3.0); PARTIAL THROMBOPLASTIN TIME 112.1 SECONDS (26.0-37.0); PROTHROMBIN TIME 136.7 SECONDS (9.7-12.8)
[2020-01-29 09:24] LABS: CREATININE, serum 0.76 (0.52-1.25)
[2020-01-29 09:27] LABS: TROPONIN-I < 0.012 ng/mL (0.000-0.035)
[2020-01-29 09:56] VITALS: BP 192/85; PULSE 76
== END 2020-01-29 10:10 | disposition short-term general hospital (02) ==
LOC: COL.ER 08:05
PROVIDERS: Emergency Medicine
DX: I62.00 Nontraumatic subdural hemorrhage, unspecified (principal); I48.91 Unspecified atrial fibrillation; J44.9 Chronic obstructive pulmonary disease, unspecified; Z79.51 Long term (current) use of inhaled steroids; Z79.01 Long term (current) use of anticoagulants; W19.XXXA Unspecified fall, initial encounter
CPT/HCPCS: C9132; J0330; J1953; J2405; J3430; J7030; J7050

== ENCOUNTER 2020-02-02 16:22 | Inpatient (IN) | payer MEDICARE ==
[~2020-02-02] VITALS: Ht 165.1 cm; Wt 51.2 kg
[2020-02-02] MEDS ORDERED: TYLENOL 325MG325 MG PO (17:15)
[2020-02-02] MEDS ORDERED: GENTLE LAXATIVE10 MG RC (17:17)
[2020-02-02] MEDS ORDERED: OMNICEF 300MG300 MG PO (17:18)
[2020-02-02] MEDS ORDERED: LOVENOX 4040 MG/0.4 SQ (17:19)
[2020-02-02] MEDS ORDERED: KEPPRA 500MG500 MG PO (17:21)
[2020-02-02] MEDS ORDERED: QUALITY CH400 MG/5 M PO (17:22)
[2020-02-02] MEDS ORDERED: ZOFRAN 4MG T4 MG/TAB PO (17:24)
[2020-02-02] MEDS ORDERED: MIRALAX PA17 GM/Dose PO (17:25)
[2020-02-02] MEDS ORDERED: 00186-0372-20 IH (17:26)
[2020-02-02] MEDS ORDERED: VENTOLIN0.09 MG IH (17:26)
[2020-02-02] MEDS ORDERED: CALCIUM CARB500 MG PO (17:27)
[2020-02-02] MEDS ORDERED: LASIX 20MG TABL20 MG PO (17:30)
[2020-02-02] MEDS ORDERED: PERFOROMIS20 MCG/2 M IH (17:30)
[2020-02-02] MEDS ORDERED: HAIRSKINNAILS PO (17:31)
[2020-02-02] MEDS ORDERED: TOPROL XL 50MG50 MG PO (17:32)
[2020-02-02] MEDS ORDERED: PROTONIX 40MG T40 MG PO (17:33)
[2020-02-02] MEDS ORDERED: NITROSTAT0.4 MG/TAB SL (17:33)
[2020-02-02] MEDS ORDERED: PRAVACHOL80 MG PO (17:34)
[2020-02-02] MEDS ORDERED: INCRUSE EL62.5 MCG/A IH (17:35)
[2020-02-02 18:10] VITALS: BP 102/52; PULSE 70; TEMP 98.6
--- NOTE | 2020-02-02 18:10 | NUR ---
PATIENT RECEIVED TO ROOM 338 VIA EMS W/OXYGEN PER NASAL CANNULA CONTINUES. PATIENT ANSWERS TO NAME CALLED.
--- NOTE | 2020-02-02 20:00 | NUR ---
DECREASED ROM/STRENGTH TO RUE&LLE DUE TO MAGDA SDH, SPEECH CLEAR AND ANSWERS QUESTIONS APPROPRIATELY. A/O X4. OXYGEN CONTINUES PER NC AT 2 LPM. BED ALARM ON.
--- NOTE | 2020-02-02 20:21 | NUR ---
PATIENT RESTING IN BED, BED ALARM ON.
[2020-02-02 21:31] VITALS: BP 102/52; PULSE 70; TEMP 98.6
[2020-02-03] MEDS ORDERED: DULCOLAX TAB5 MG PO (01:09)
[2020-02-03] MEDS ORDERED: SENNA-S 50 MG-81 TAB PO (01:18)
[2020-02-03] MEDS ORDERED: ULTRAM 50MG TAB50 MG PO (01:31)
[2020-02-03 05:32] VITALS: BP 117/56; PULSE 88; TEMP 98.5
--- NOTE | 2020-02-03 08:25 | NUR ---
PATIENT SLEEPING IN BED DURING CHANGE OF SHIFT REPORT GIVEN TO DAY SHIFT NURSERILEY. PATIENT LETHARGIC AND AWAKENS AFTER REPEATED ATTEMPTS TO WAKE PATIENT. ANSWERS QUESTIONS WITH SLIGHT DELAYED RESPONSE WITH SPEECH CLEAR AND APPROPRIATE. BED ALARM ON.
[2020-02-03 09:44] VITALS: BP 122/68; PULSE 86
--- NOTE | 2020-02-03 11:33 | NUR ---
Call placed to Eliza, patient's daughter and Eliza reported that she and her will be having patient's Greg live with them while patient is in the hospital. Eliza also reported that patient was an avid rangel-women and could outfish anyone at one time. Patient currently working with ST at this time. Will continue to monitor.
--- NOTE | 2020-02-03 14:52 | NUR ---
Patient resting in bed at this time, call light in reach and bed alarm is set. Patient was incontient of urine and was a total assist with changing and cleaning her up. Patient stated that she was depressed. She also reports having bladder pain. Will try to collect a continent specimen.
--- NOTE | 2020-02-03 15:25 | NUR ---
Patient reporting bladder pain and frequency. Bladder scan completed reporting >647. Patient has been incontinent of urine times two in the last hour. Urine is light yellow, some sediment. Will report to physician.
[2020-02-03 15:28] VITALS: BP 125/67; PULSE 77; TEMP 97.6
--- NOTE | 2020-02-03 16:24 | NUR ---
This nurse received orders for straight cath due to patient having multiple incontinent episodes and having urinary pain. Received 800 ml output. Patient resting comfortably now. Urine culture was completed on 01/31/20 at [facility] and culture did not grow out anything per [facility] lab. Urine is light yellow and clear at this time. Will continue to monitor.
[2020-02-03 17:12] VITALS: BP 145/81; PULSE 107; TEMP 99
--- NOTE | 2020-02-03 19:24 | NUR ---
Patient reported that she was allergic to Tylenol, but current allergy list did not have this medication on it. Call placed to Eliza, daughter of patient to verify and Eliza asked patient's both said that patient was not allergic to Tylenol. Patient has been given Tylenol for headache pain and no adverse reactions have been observed following that intake. Will continue to monitor. Patient did not have bladder pain following the straight cath this afternoon, but now is reporting bladder pain again. Night nurse was updated on this and will bladder scan patient to make sure there is no further retention of urine.
--- NOTE | 2020-02-03 19:29 | NUR ---
Patient resting in bed during change of shift report from day shift nurseAngeline. Bed alarm on.
--- NOTE | 2020-02-03 19:59 | NUR ---
Adult diapers dry to touch, denies urge to void, still has some low abd pain, bladder scan done with 838 ml resulting on scan. Bed alarm on.
--- NOTE | 2020-02-03 20:00 | NUR ---
DECREASED ROM/STRENGTH TO LLE&RUE D/T BRAIN BLEED. PATIENT ABLE TO FINAL INSPECTOR TRUCK TRAILER WITH BOTH HANDS THAT ARE VERY WEAK WITH RIGHT MORE THAN LEFT. MOVED LLE SOME SPONTANEOUSLY. SPEECH CLEAR/APPROPRIATE AND FOLLOW COMMANDS WELL. ALERT AND ORIENTED. REPORTS STILL HAS LOWER ABD DISCOMFORT, NO URGE TO VOID.
--- NOTE | 2020-02-03 20:12 | NUR ---
Contacted Regla ARGUELLES of bladder scan results, current medications taking and urine assessment/patient c/o. Orders placed by provider.
--- NOTE | 2020-02-03 20:30 | NUR ---
INFORMED PATIENT OF DO FOR COLON CATH PLACEMENT FOR URINE RETENTION AND SPECIMEN COLLECTION ONCE CATH PLACED THAT WILL BE SENT TO LAB. PATIENT WITH NO OTHER QUESTIONS OR CONCERNS VOICED. BED ALARM ON.
[2020-02-03 20:58] LABS: COLLECTION METHOD CLEAN CATCH
[2020-02-03 21:10] LABS: PH 5 (5-8); SQUAMOUS EPITHELIAL None Seen /hpf; URINE APPEARANCE Clear; URINE BACTERIA None Seen /hpf; URINE BILIRUBIN Negative (NEGATIVE); URINE BLOOD Negative (NEGATIVE); URINE COLOR Straw; URINE GLUCOSE Negative (NEGATIVE); URINE KETONE Trace (NEGATIVE); URINE LEUKOCYTE ESTERASE Negative (NEGATIVE); URINE NITRATE Negative (NEGATIVE); URINE PROTEIN(semi-quant) Negative (NEGATIVE); URINE RBC 0-2 /hpf; URINE UROBILINOGEN Negative (NEGATIVE)
--- NOTE | 2020-02-03 21:14 | NUR ---
INFORMED VIJAY ARGUELLES OF LAB RESULTS WITH NO NEW ORDERS PLACED AT THIS TIME. INFORMED OF PAIN RELIEVED TO ABD AND SOME TO BACK AFTER CATH PLACED.
--- NOTE | 2020-02-03 22:00 | NUR ---
CLEANED MAGDA SCALP INCISIONS WITH LIGHT APPLICATION OF ALCOHOL WIPES THAT PATIENT TOLERATED. LEFT BOTH SCALP INCISIONS OPEN TO AIR ORDERED.
--- NOTE | 2020-02-04 00:34 | NUR ---
PATIENT C/O SEVERE HEADACHE, SEE eMAR FOR MED GIVEN AND APPLIED COOL WET WASHCLOTHE TO FORE HEAD WELL. BED ALARM ON. COLON CATH IN PLACE AND DRAINING.
--- NOTE | 2020-02-04 02:45 | NUR ---
Patient sleeping with breathing observed as nonlabored and even, with oxygen per nasal cannula at 2lpm in place to nares. Does not awaken when door to room is opened by staff. Bed alarm on.
[2020-02-04 05:40] VITALS: BP 134/56; PULSE 88; TEMP 98
--- NOTE | 2020-02-04 07:40 | NUR ---
Patient sleeping in bed during change of shift report given to day shift nurseAngeline. Bed alarm on.
--- NOTE | 2020-02-04 10:40 | NUR ---
Patient resting in bed this morning reporting of headache and given prn tramadol. Patient voicing frustration that she is not able to move her right leg like she use to and hates to call for assistance. Patient voiced that she is depressed at times due to her new condition. Patient ate some breakfast this morning and took her pills whole with applesauce and drank her thickened water with nurse assistance. Will continue to monitor.
--- NOTE | 2020-02-04 13:22 | NUR ---
SW met with patient, patient could not get all of her words out. Patient gave permission to reach out to . SW called Spouse at [phone] [facility] and left message to return call. No answer.
[2020-02-04 16:00] VITALS: BP 130/67; PULSE 76; TEMP 98.1
--- NOTE | 2020-02-04 18:46 | NUR ---
Patient refused her lunch this afternoon and slept most of the day. Patient given prn tramadol for headache this afternoon. This nurse called patient's daughter to verify home meds, no changes made to home med list. Patient's wanted to talk with her, so patient was given the phone to communicate with family this afternoon. Patient reported that her only wanted her to come home to cook for him. Patient did agree to eat her supper this evening and this nurse assisted patient with this task. Patient did drink her tea and small amount of water with one person assistance. Patient denies questions at this time. She is lying in bed, with call light in reach and bed alarm set. Will continue to monitor.
[2020-02-05 05:32] VITALS: BP 92/53; PULSE 73; TEMP 97.4
--- NOTE | 2020-02-05 05:52 | NUR ---
PT REMAINS IN BED. SHE SEEMS TO BE IN A VERY DEPRESSED STATE/MOOD. PT REPOSITIONED APPROX. EVERY 1-2 HOURS SHE IS UNABLE TO REPOSITION.
[2020-02-05 07:35] VITALS: BP 113/88; PULSE 104
[2020-02-05 08:03] LABS: BASO % 0.2 % (0.0-2.0); EOS # 0.1 (0.0-0.7); EOS % 1.4 % (0-4.0); GRAN # 3.4 (1.4-6.5); GRAN % 65.7 % (42.2-75.2); LYMPH # 0.8 (1.2-3.4); LYMPH % 15.9 % (20.0-51.0); MEAN CELL VOLUME 102 fl (80.0-100.0); MEAN CORPUSCULAR HGB CONC 34 g/dl (33.0-37.0); MEAN PLATELET VOLUME 9.2 fl (7.4-10.4); MONO # 0.8 (0.1-0.6); PLATELET COUNT 222 K/mm3 (130-400); RED BLOOD COUNT 2.67 M/mm3 (4.10-5.30)
[2020-02-05 08:15] LABS: ALBUMIN 2.9 gm/dL (3.5-5.0); BILIRUBIN,TOTAL 0.9 mg/dL (0.0-1.0); CALCIUM 8.2 mg/dL (8.4-10.2); CREATININE, serum 0.65 (0.52-1.25); MAGNESIUM 1.9 mg/dL (1.6-2.3); POTASSIUM 3.6 mmol/L (3.4-5.0); TOTAL PROTEIN 6.2 gm/dL (6.4-8.2)
[2020-02-05 08:20] LABS: INR 1.1 (0.8-3.0); PROTHROMBIN TIME 11.8 SECONDS (9.7-12.8)
[2020-02-05 08:26] LABS: HEMATOCRIT 27.3 % (37.0-47.0); HEMOGLOBIN 9.2 g/dl (12.5-16.0); MEAN CORPUSCULAR HEMOGLOBIN 34 pg (27.0-31.0)
--- NOTE | 2020-02-05 08:30 | NUR ---
Assessment complete. Patient A&Ox3. Reporting pain in her head. Pain medication requested. VSS. 2L NC O2. No reported SOB. [place] bilateral head CDI. Old drainage around manolo. Patient assisted with getting reposited for breakfast and medication. Patient stated to the nurse that "shes dying". Nurse assisted patient with eating, but patient was not very hungry. No further needs expressed from patient. Fall precautions in place. Call light withn reach
[2020-02-05 15:18] VITALS: BP 112/68; PULSE 63; TEMP 98.1
--- NOTE | 2020-02-05 18:17 | NUR ---
Patient rested in bed most of the shift. Tolerated working with OT/ST/PT today. Patient had no desire to eat hospital food. Nursing staff assisted with feeding patient. Patient is depressed and stated to the nurse that she is "dying" Nursing staff has been trying to comfort patient and to encourage patient to eat. [place] to head, CDI. Call light within reach. Fall precautions in place. SCD's bilateral legs
--- NOTE | 2020-02-06 06:26 | NUR ---
Patient has rested well throughout the night. Staff repositions patient frequently. Encouraged to drink fluids, but patient does not want thickened liquids. Attempted to educate on the reasoning why patient needs thickened liquids, but patient seemed uninterested. Family called and updated last evening. Garcia catheter continues to drain clear, yellow urine. Will continue to monitor.
[2020-02-06 06:27] VITALS: BP 142/68; PULSE 83; TEMP 98
--- NOTE | 2020-02-06 09:01 | NUR ---
Patient is alert and orient. soft voice. complain of pain at 5/10 o her knees. Affect is flat.
--- NOTE | 2020-02-06 11:10 | NUR ---
Attempted to talk with Ariel during her break from therapy but she is tired, speaks almost in a whisper, and appears to doze off frequently. She was just given a tramadol for knee pain just prior to my arrival. She is not making eye contact. I will try to let her rest and try again this afternoon. I did call her Greg on his cell phone but had to leave a message for him. I will keep trying to talk with family and patient as I can.
--- NOTE | 2020-02-06 14:34 | NUR ---
Reached Greg at # [phone]. He had tried to talk with pt on phone earlier today and noted she was very quiet and subdued. He reports that "she has to get better--I need her and so does her bird "TJ". Advised that she was working with therapy a little bit better today. Greg is planning on visiting on as it has been several weeks since they have been together. He advises that she has had lung cancer and stomach cancer and has beaten them both. He states he does not want anyone talking with her about dying! He doesn't want that thought in her head. When we spoke it was obvious that he understands that Ariel has been through a lot but he very much wanting her goal of care to be one of rehab and recovery. I did talk with pt after this call and advise of Greg's plan to visit on .
--- NOTE | 2020-02-06 16:48 | NUR ---
Flat Surfacer Jewel attempted to meet with patient to complete initial intake. Patient could not keep her eyes open and spoke in a whisper. Patient had great difficulty staying awake. SW attempted to call patient's Carlos at [phone] and [phone]. SW attempted both numbers twice and left messages. Palliative RN, Patricia was able to reach Carlos earlier today at [phone]. Per Patricia's note, Carlos would like patient to continue with therapy to get better. SW will attempt contact with Carlos again tomorrow.
[2020-02-06 18:31] VITALS: BP 76/45; PULSE 82; TEMP 97.8
--- NOTE | 2020-02-06 19:30 | NUR ---
Patient resting in bed during change of shift report from day shift nurseArchana. Bed alarm on. Jose to dd in place.
[2020-02-06 19:42] VITALS: BP 103/57; PULSE 91; TEMP 98.3
--- NOTE | 2020-02-06 20:00 | NUR ---
DECREASED ROM/STRENGTH TO RUE/RLE/LLE D/T BRAIN BLEED. SPEECH CLEAR AND APPROPRIATE. BED ALARM ON WHEN IN USE.
--- NOTE | 2020-02-06 22:30 | NUR ---
See eMAR for meds given, complained of slight headache. Patient agreeable to have krishnan catheter taken out tomorrow in AM. Drinking nectar thick liquids at this time with scheduled meds. Bed alarm on.
--- NOTE | 2020-02-07 03:08 | NUR ---
Patient sleeping, does not awaken when room entered by staff. Observed breathing as nonlabored and vishnu. Oxygen continues per NC at 1lpm. Bed alarm on.
[2020-02-07 05:36] VITALS: BP 116/64; PULSE 69; TEMP 97.8
--- NOTE | 2020-02-07 06:50 | NUR ---
PATIENT DID NOT WANT COLON CATH REMOVED AT THIS TIME, STATED IT CAN BE REMOVED TOMORROW.
--- NOTE | 2020-02-07 07:24 | NUR ---
PATIENT SLEEPING DURING CHANGE OF SHIFT REPORT GIVEN TO DAY SHIFT NURSERONY. BED ALARM ON.
--- NOTE | 2020-02-07 08:00 | NUR ---
Patient in bed, alert and oriented. Assisted patient to eat breakfast. Patient very soft spoken. SCDs to BLE. Incisons with manolo intact to left and right scalp. Denies pain at this time. Denies further needs.
--- NOTE | 2020-02-07 11:56 | NUR ---
Patient showered with therapy. Up in recliner at this time.
--- NOTE | 2020-02-07 13:22 | NUR ---
Patient in bed, no needs at this time.
--- NOTE | 2020-02-07 16:07 | NUR ---
Diagnostic Technician contacted patient's , Carlos and left a message. SW met with patient and provided a copy of team conference notes. SW advised patient that the team will re-evaluate next week on a discharge date. Patient reports she sees Dr. Elicia Morrison for primary care and obtains medications from [facility] in [place]. Patient states she lives in with Carlos and has a walker and wheelchair at home. Patient reports she does not use oxygen at home. SW to continue to follow.
[2020-02-07 17:30] VITALS: BP 129/59; PULSE 75; TEMP 98
--- NOTE | 2020-02-07 18:50 | NUR ---
PATIENT SLEEPING DURING CHANGE OF SHIFT REPORT FROM DAY SHIFT NURSERONY. BED ALARM ON. COLON IN PLACE, DRAINING WITH NO PROBLEMS.
--- NOTE | 2020-02-07 18:51 | NUR ---
Patient has done well throughout the day. Refusing to allow this nurse to discontinue krishnan catheter. Total assist with meals, nectar thick liquids. Denies pain at this time. Will report off to cosmetology professor.
--- NOTE | 2020-02-07 20:00 | NUR ---
DECREASED ROM&STRENGTH TO RUE AND RLE AND LLE DUE TO BRAIN BLEED HX. PATIENT TOLERATING INTAKE OF NECTAR THICKENED LIQUIDS AND CONTINUES TO SWALLOW WHOLE PILLS WITH NO PROBLEMS. SPEAKS CLEARING IN VOCAL INTERACTION WITH STAFF, FOLLOWS COMMANDS WELL, IS ABLE TO EXPRESS THOUGTHS AND CONCERNS WHEN ASKED IN CONVERSATIONS WITH STAFF. DOES NOT WANT COLON CATH OUT AT THIS TIME.
--- NOTE | 2020-02-08 01:00 | NUR ---
PATIENT SLEEPING, DOES NOT AWAKEN WHEN ROOM ENTERED BY STAFF. OBSERVED BREATHING NONLABORED AND EVEN. BED ALARM ON.
[2020-02-08 05:22] VITALS: BP 103/56; PULSE 74; TEMP 98
--- NOTE | 2020-02-08 07:41 | NUR ---
PATIENT SLEEPING, DURING CHANGE OF SHIFT REPORT GIVEN TO DAY SHIFT NURSERILEY. BED ALARM ON.
[2020-02-08 07:56] VITALS: BP 128/69; PULSE 71
--- NOTE | 2020-02-08 08:22 | NUR ---
Patient hasn't had a BM 02/01 and was given bowel meds and suppository this AM. Patient has active bowel sounds in all quads and is not complaining of abdominal pain. Patients is reporting no gas this morning, but just feeling uncomfortable since it has been so long since she has had a BM. Patient refused her breakfast, but did take her pills one at a time with staff helping her with putting pill in spoon, feeding it to her and her holding glass with nectar thick liquid to drink down pills. Will continue to monitor.
--- NOTE | 2020-02-08 14:11 | NUR ---
Met with hospital social worker, Janelle, and talked with Greg who has been with Ariel at PT and is currently sitting in her room. He was able to see the ability to walk a couple of steps and try to do PT exercises. He still maintains that he feels she can come home and that they will help there for her to keep getting stronger. He did talk about home health services but when asked to clarify told us that he had not used them as his daughter Eliza is a nurse and readily available to them. Reinforced that the need for therapy will be ongoing for sometime. Reinforced the importance of his visit and the need for ongoing support.
--- NOTE | 2020-02-08 14:26 | NUR ---
Stock Checkerer met with patient, patient's Carlos, and FARNAZ Gomez. Carlos expressed that he was happy to see patient and that he has missed her at home. Carlos advised he plans on patient returning home and is open to Home Health services. Carlos reports he has been staying with his daughter, Eliza (ph#[phone]) and her , Reggie out in [place]. Carlos advised that normally patient sets up his medications for him so when she was hospitalized, he stopped taking his meds and had some issues because of this. Carlos reports he is now back on track with his daughter, Eliza helping him. Carlos states Eliza is an RN. SW will continue to follow.
[2020-02-08 17:30] VITALS: BP 139/57; PULSE 70; TEMP 97.9
--- NOTE | 2020-02-08 19:43 | NUR ---
PATIENT SLEEPING IN BED DURING CHANGE OF SHIFT REPORT FROM DAY SHIFT NURSERILEY. BED ALARM ON. COLON IN PLACE AND DRAINING CLEAR YELLOW URINE.
--- NOTE | 2020-02-08 20:00 | NUR ---
DECREASED ROM/STRENGTH TO RUE/RLE DUE TO BRAIN INJURY/BLEED/SX WITH TIGHTENING MACHINE OPERATOR TO R HAND WEAKER THAN L HAND. DECREASED STRENGTH TO LLE RELATED TO BRAIN INJURY/BLEED/SX. OBSERVED SOME GROSS MOTOR MOVEMENT TO RUE MORE THAN RLE. PATIENT TRANSFERS FROM BED/BSC/BACK TO BED WITH MAX X2 ASST WITH PATIENT MINIMALLY ASST BY HOPING ON LLE OBSERVING PATIENT TIRES EASILY WITH EXERTION. BED ALARM ON WHEN IN BED.
--- NOTE | 2020-02-09 02:37 | NUR ---
PATIENT SLEEPING, BREATHING OBSERVED NONLABORED AND EVEN. OXYGEN CONTINUES PER NC. BED ALARM ON.
[2020-02-09 05:26] VITALS: BP 116/43; PULSE 72; TEMP 97.2
--- NOTE | 2020-02-09 07:08 | NUR ---
PATIENT SLEEPING IN BED DURING CHANGE OF SHIFT REPORT GIVEN TO DAY SHIFT NURSERILEY. BED ALARM ON.
--- NOTE | 2020-02-09 11:29 | NUR ---
Trim Mechanic checked in with patient before the weekend. Patient states her may be in later to visit. Patient enjoyed having her visit yesterday. Patient denies any questions or needs at this time. SW to continue to follow.
--- NOTE | 2020-02-09 12:00 | NUR ---
Patient resting in bed, call light in reach and reported having a headache. Patient given prn tylenol with only some effect. Patient currently resting in bed at this time eating her lunch. Reported off to night nurse.
--- NOTE | 2020-02-09 13:17 | NUR ---
Pt is working with OT at this time. Her is at her side in her room. Will not interupt therapy session.
--- NOTE | 2020-02-09 14:16 | NUR ---
Patient in bed sleeping
[2020-02-09 17:50] VITALS: BP 98/54; PULSE 83; TEMP 97.8
--- NOTE | 2020-02-09 18:55 | NUR ---
Patient has done well this afternoon. Denies further needs at this time. WIll report off to pumpman.
--- NOTE | 2020-02-09 19:07 | NUR ---
Report received from FARNAZ Torrez. Patient resting with eyes closed in bed. Denies any needs. Will monitor.
--- NOTE | 2020-02-10 05:36 | NUR ---
Patient has rested well throughout the night. Denies pain. Patient able to move around in the bed pretty well. Complains of some pain to her bottom. Coccyx appears slightly red and blanchable. Barrier cream applied. Garcia catheter noted to be present. Draining clear, yellow urine. Minimal output noted. Patient noted to cough a couple times throughout the night. Lung sounds noted to be clear. Takes pills with applesauce. Patient took melatonin at HS and it was noted to be effective. Patient appeared to sleep well. Will continue to monitor.
[2020-02-10 06:17] VITALS: BP 115/41; PULSE 75; TEMP 98.1
--- NOTE | 2020-02-10 09:00 | NUR ---
Assessment complete. Patient A&Ox3 sitting up in bed and eating breakfast. VSS 1L NC O2. No reported SOB. Denies pain and discomfort. Patient eating breakfast without assistance, but still not eating much. States she does not like the food. Waffle mattress in place. Garcia dependent drainage, tea colored, clear. SCD's bilateral legs. No further needs expressed from patient. Call light within reach
[2020-02-10 16:57] VITALS: BP 109/86; PULSE 80; TEMP 98.4
--- NOTE | 2020-02-10 17:42 | NUR ---
Patient spent the shift in bed. VSS 1L NC O2. Reported a headache, pain medication given when requested. Patient requested that the air mattress be removed for discomfort. Patient independent with eating and repositioning in bed. Has called for assistance as needed. Garcia to dependent drainage, clear and tea colored. Patient not taking much PO, nursing staff encouraging PO intake. Bilateral legs SCD. No further needs expressed from patient. Call light within reach.
--- NOTE | 2020-02-11 05:31 | NUR ---
About 2030 patient called and complained of pain to lower abdomen. Noted to be slightly distended. patient states she can't get the pee out. Catheter appears to be having difficulty draining urine. Tubing manipulated and very small amount of urine able to drain. Catheter irrigated and patient noted to have a moderate amount of sediment in her urine. 50ml of urine was returned at this time. Lisa Noyola APRN notified about pain and attempts to clear the line. Bladder scan was completed before catheter irrigation and it showed 0ml. Patient checked about 30 minutes later and patient stated she needed to have a bowel movement. Noted to have 2 bowel movements. Patient stated she felt a little better. Patient educated to call this nurse if her pain came back. This nurse checked on patient about her pain about midnight and patient stated she felt a lot better. Garcia catheter is draining urine. Minimal output continues. Will continue to monitor.
[2020-02-11 05:53] VITALS: BP 94/27; PULSE 61; TEMP 97.9
[2020-02-11 06:30] VITALS: BP 99/51
--- NOTE | 2020-02-11 16:05 | NUR ---
NEW STAT LOCK APPLIED TO LEFT LEG. SCALP INCISIONS CLEANED WITH ALCOHOL WIPES. CHHAYA INTACT. EDGES WELL APPROXIMATED. OLD DRIED BLOOD PRESENT ON SCALP. PATIENT DENIES PAIN AT THIS TIME.
--- NOTE | 2020-02-11 16:45 | NUR ---
CAROL AYALA CALLED AND NOTIFIED THAT THE PATIENT HAS BEEN SLEEPING ALOT TODAY AND SAYS THAT SHE'S NOT FEELING WELL. URINE IS CLOUDY WITH MUCOUS PRESENT. UA REQUESTED AT THIS TIME.
[2020-02-11 17:17] VITALS: BP 107/58; PULSE 75; TEMP 98.8
[2020-02-11 17:36] LABS: COLLECTION METHOD CLEAN CATCH
[2020-02-11 17:39] LABS: BASO % 0.3 % (0.0-2.0); EOS # 0.1 (0.0-0.7); EOS % 0.9 % (0-4.0); GRAN # 4.8 (1.4-6.5); GRAN % 73.5 % (42.2-75.2); LYMPH # 0.8 (1.2-3.4); LYMPH % 12.5 % (20.0-51.0); MEAN CELL VOLUME 104 fl (80.0-100.0); MEAN CORPUSCULAR HGB CONC 32 g/dl (33.0-37.0); MEAN PLATELET VOLUME 9.1 fl (7.4-10.4); MONO # 0.8 (0.1-0.6); MONO % 12.5 % (1.7-9.3); PLATELET COUNT 232 K/mm3 (130-400); RED BLOOD COUNT 2.94 M/mm3 (4.10-5.30); REDCELL DISTRIBUTION WIDTH-CV 13.8 % (11.5-14.5)
[2020-02-11 17:43] LABS: HEMATOCRIT 30.6 % (37.0-47.0); HEMOGLOBIN 9.9 g/dl (12.5-16.0); MEAN CORPUSCULAR HEMOGLOBIN 34 pg (27.0-31.0)
[2020-02-11 17:44] LABS: MUCOUS Present /lpf; PH 5 (5-8); SQUAMOUS EPITHELIAL 0-2 /hpf; URINE APPEARANCE Cloudy; URINE BACTERIA None Seen /hpf; URINE BILIRUBIN Negative (NEGATIVE); URINE BLOOD 2+ (NEGATIVE); URINE COLOR Yellow; URINE GLUCOSE Negative (NEGATIVE); URINE KETONE Negative (NEGATIVE); URINE LEUKOCYTE ESTERASE 3+ (NEGATIVE); URINE NITRATE Positive (NEGATIVE); URINE PROTEIN(semi-quant) Negative (NEGATIVE); URINE RBC >50 /hpf; URINE UROBILINOGEN >=4.0 mg/dL (NEGATIVE)
[2020-02-11 18:11] LABS: CALCIUM 8.6 mg/dL (8.4-10.2); CREATININE, serum 0.98 (0.52-1.25); POTASSIUM 3.9 mmol/L (3.4-5.0)
--- NOTE | 2020-02-11 19:00 | NUR ---
PATIENT RESTED IN BED. REPOSITIONING PROVIDED THROUGHOUT THE SHIFT. PATIENT EATS INDEPEDENTLY. PATIENT ATE WELL FOR LUNCH. PATIENT DENIES PAIN EXCEPT AT THE URETHRA. COLON DRAINING CLOUDY, YELLOW URINE TO BAG. COLON FREE OF LOOPS AND SECURED TO THE BED. PATIENT SLEPT MOST OF THE DAY. VISITED THIS AFTERNOON. PATIENT MORE ALERT AND RESPONSIVE AFTER THE VISIT WITH HER .
--- NOTE | 2020-02-11 19:03 | NUR ---
REPORT GIVEN TO FARNAZ LI.
--- NOTE | 2020-02-12 03:14 | NUR ---
Patient has rested well throughout the night. PRN Tramadol given for headache at HS. Patient stated this was effective. Garcia Catheter is draining well. No complaints of pain to catheter this shift. 22G started to left forearm. Antibiotics given per physician orders. Patient able to move around in the bed independently. Patient takes pills whole in applesauce. Patient utilizes call light appropriately for needs. Will continue to monitor.
[2020-02-12 05:50] VITALS: BP 106/60; PULSE 88; TEMP 98.3
--- NOTE | 2020-02-12 16:28 | NUR ---
Public Welfare Worker collaborated with Bea, IPR Director who advised patient refused therapy this morning. Bea would like to have family meeting soon. SERGIO contacted patient's daughter, Eliza and scheduled meeting for tomorrow (02/13/20) at 1315. Eliza will participate by phone and she advised that she will likely bring patient's to the hospital to participate in person as he is her designated visitor. Eliza expressed some concern about patient returning home and advised she has offered to have patient and patient's move in with them or in an RV on their property but that so far patient has declined. SERGIO met with patient who is agreeable to date and time of family meeting. Patient reports her mood has been okay but that she did not feel well enough to work with therapy today. Patient states she felt dizzy and her bottom hurt. SERGIO will continue to follow.
[2020-02-12 18:30] VITALS: BP 108/63; PULSE 75; TEMP 97.8
--- NOTE | 2020-02-12 18:47 | NUR ---
Patient resting in bed at this time. Patient c/o a headache this morning but refused PRN medication. Patient later refused therapy, then agreed to do bed exercises per PT. Patient told QUARRY BOSS that her catheter was causing her discomfort and that is why she didn't want to do therapy today. Recieved TORB from hospitalist to HINA krishnan today due to UTI diagnosed last night. Patient ate well for dinner and currently denies pain or needs, call light within reach.
--- NOTE | 2020-02-12 19:39 | NUR ---
PATIENT IN BED DURING CHANGE OF SHIFT REPORT FROM DAY SHIFT NURSEMEGAN. COLON CATH IN PLACE, DRAINING CLEAR YELLOW URINE. SALINE LOCK CONTINUES TO LUE. NO COMPLAINTS REPORTED AT CHANGE OF SHIFT.
--- NOTE | 2020-02-12 20:31 | NUR ---
DECREASED STRENGTH TO RIDE SIDE AND LLE D/T WEAKNESS POST BRAIN SX/INJURY. SPEECH CLEAR/APPROPRIATE. R HAND FIRST PRESS OPERATOR WEAKER THAN LEFT, OBSERVED SOME SPONTANEOUS RUE GROSS MOVEMENT, INTERMITTANTLY. COLON IN PLACE, PATIENT AGREEABLE TO HAVE CATH TAKEN OUT. PATIENT REPORTS HAVING SOME DIFFICULTY PASSING STOOL TONIGHT. BED ALARM ON WHEN IN BED.
--- NOTE | 2020-02-12 20:48 | NUR ---
COLON CATHETER REMOVED PER DR. MEDLEY. OBSERVED URINE DARK YELLOW WITH SCANT AMOUNT OF SEDIMENT. PATIENT TOLERATED REMOVAL WITH VERY LITTLE COMPLAINT REPORTED.
--- NOTE | 2020-02-12 21:55 | NUR ---
PATIENT DENIES URGE TO VOID AT THIS TIME, AGREEABLE TO GET UP TO COMMODE FOR Q2H BATHROOM ROUTINE FOR POST COLON REMOVAL.
--- NOTE | 2020-02-12 22:29 | NUR ---
DENIES URGE TO VOID, WANTS TO TRY GETTING UP TO BSC LATER.
--- NOTE | 2020-02-13 00:15 | NUR ---
PATIENT INITIALLY SLEEPING BUT AWAKENS WHEN ROOM ENTERED BY STAFF, OBSERVED BREATHING NONLABORED AND EVEN. BED ALARM ON. DENIES URGE TO VOID, ADULT DIAPERS DRY.
--- NOTE | 2020-02-13 02:46 | NUR ---
PATIENT SLEEPING, DOES NOT AWAKEN WHEN ROOM ENTERED BY STAFF, OBSERVED BREATHING NONLABORED AND EVEN. BED ALARM ON.
[2020-02-13 04:33] VITALS: BP 114/57; PULSE 85; TEMP 98.2
--- NOTE | 2020-02-13 05:04 | NUR ---
PATIENT ENCOURAGED TO DRINK MORE FLUIDS INORDER TO URINATE, BLADDER SCAN DONE, ZERO ML SCANNED. BED ALARM ON.
--- NOTE | 2020-02-13 07:21 | NUR ---
PATIENT SLEEPING BUT AWAKENED EASILY DURING CHANGE OF SHIFT REPORT GIVEN TO DAY SHIFT NURSE, RILEY. BLADDER SCAN DONE, 109 ML MAXED SCANNED WITH ABD SOFT, NO DISCOMFORT REPORT WITH PALPATION OF BLADDER AREA. BED ALARM ON.
[2020-02-13 08:29] VITALS: BP 107/53
[2020-02-13 11:58] VITALS: BP 114/89
--- NOTE | 2020-02-13 13:06 | NUR ---
Patient attended all therapies today. Tolerating meals well today. Denies questions at this time. is here visiting patient at this time.
--- NOTE | 2020-02-13 14:32 | NUR ---
Real Estate Services Coordinator participated in family meeting which included patient's Carlos, IPR Director Bea, and PT/OT/ST. Patient's daughter, Eliza participated by phone. Bea opened the meeting by explaining purpose and was followed by PT/OT/ST reviewing patient's progress and discharge plan. Eliza states that ideally she would like patient and Carlos to come stay with them temporarily, but that ultimately it is up to patient. Eliza advised that they have a five bedroom house and everything patient needs is able to be accessed without stairs. Eliza reports they will ensure patient has the support she needs and that patient has a granddaughter that lives next door to Eliza and also happens to be a RN. Patient is agreeable to this plan. Bea and the therapy team discussed patient's participation in therapy as a potential barrier to progress. Patient verbalized understanding and would like to stay as long as she can to continue to gain progress towards going home. SW to continue to follow.
[2020-02-13 16:24] VITALS: BP 135/77; PULSE 71; TEMP 98.5
--- NOTE | 2020-02-13 19:50 | NUR ---
PATIENT SLEEPING DURING CHANGE OF SHIFT REPORT FROM DAY SHIFT NURSERILEY. DOES NOT AWAKEN WHEN ROOM ENTERED BY STAFF. BED ALARM ON.
--- NOTE | 2020-02-13 19:57 | NUR ---
GAVE REPORT TO NIGHT NURSE
--- NOTE | 2020-02-13 20:00 | NUR ---
DECREASED ROM/STRENGTH TO RIGHT SIDE WITH SOME GROSS MOTOR MOVEMENT OBSERVED TO RUE, TRACE TO RLE WITH RIGHT HAND WEAKER DIRECTOR PATIENT COMPARED TO L HAND DIRECTOR PATIENT. OBSERVED SOME WEAKNESS TO LLE WITH ROM/STRENGTH. BED ALARM ON.
--- NOTE | 2020-02-13 22:00 | NUR ---
PATIENT UP TO BSC&BACK TO BED VIA [id number] LIFT, WITH PATIENT TOLERATING TRANSFER WELL, STILL VOICING HOW TIRED SHE IS. NO STOOL PASSED BUT ABLE TO VOID SLOWLY. BED ALARM ON WHEN BACK IN BED.
--- NOTE | 2020-02-14 | NUR ---
PATIENT SLEEPING, DOES NOT AWAKEN WHEN ROOM ENTERED BY STAFF, OBSERVED BREATHING NONLABORED AND EVEN. BED ALARM ON.
[2020-02-14 03:57] VITALS: BP 117/48; PULSE 76; TEMP 97.9
[2020-02-14 07:10] LABS: BASO % 0.3 % (0.0-2.0); EOS # 0.1 (0.0-0.7); EOS % 2.4 % (0-4.0); GRAN # 2.2 (1.4-6.5); GRAN % 58.4 % (42.2-75.2); LYMPH # 0.7 (1.2-3.4); LYMPH % 19.3 % (20.0-51.0); MEAN CELL VOLUME 104 fl (80.0-100.0); MEAN CORPUSCULAR HGB CONC 32 g/dl (33.0-37.0); MEAN PLATELET VOLUME 9.1 fl (7.4-10.4); MONO # 0.7 (0.1-0.6); MONO % 19.3 % (1.7-9.3); PLATELET COUNT 238 K/mm3 (130-400); RED BLOOD COUNT 2.92 M/mm3 (4.10-5.30); REDCELL DISTRIBUTION WIDTH-CV 13.3 % (11.5-14.5)
[2020-02-14 07:11] LABS: HEMATOCRIT 30.4 % (37.0-47.0); HEMOGLOBIN 9.8 g/dl (12.5-16.0); MEAN CORPUSCULAR HEMOGLOBIN 34 pg (27.0-31.0)
[2020-02-14 07:26] LABS: CALCIUM 9.3 mg/dL (8.4-10.2); CREATININE, serum 0.86 (0.52-1.25); MAGNESIUM 2.3 mg/dL (1.6-2.3); POTASSIUM 4.2 mmol/L (3.4-5.0)
--- NOTE | 2020-02-14 07:39 | NUR ---
PATIENT IN BED EATING BREAKFAST DURING CHANGE OF SHIFT REPORT GIVEN TO DAY SHIFT NURSERILEY. BED ALARM ON.
--- NOTE | 2020-02-14 11:19 | NUR ---
Followed up with delinquency prevention social worker, Janelle, after family meeting yesterday. Current plan is for pt and to stay with daughter in her home after discharge. She can provide support and granddaughter is an RN and live close as well.
--- NOTE | 2020-02-14 16:45 | NUR ---
Line Person met with patient and patient's Carlos to provide review and provide copy of team conference notes. SW reviewed discharge recommendations including Home Health services and DME. SW advised it is recommended patient obtain a wheelchair, bedside commode, grab bars, and shower chair with handles. Patient's , Carlos reports he prefers to purchase and obtain these items in [place]. SW will continue to follow to assist in obtaining these items and establishing Home Health.
[2020-02-14 16:51] VITALS: BP 141/60; PULSE 78; TEMP 99
--- NOTE | 2020-02-14 17:00 | NUR ---
Patient resting in bed, with by her side at this time. Call light in reach and bed alarm is set. Patient was upset earlier and this nurse spoke with Amaris, and Bea to discuss options for handling her frustrations. Bea was going to visit with patient to try to come to a resolution. Will continue to monitor.
--- NOTE | 2020-02-14 18:53 | NUR ---
During Care Planning Meeting it was discussed that patient would be willing to have psych consult. She has reported being very depressed. See new order per Dr. Vidales.
--- NOTE | 2020-02-14 20:00 | NUR ---
PATIENT RESTING IN BED DURING CHANGE OF SHIFT REPORT FROM DAY SHIFT NURSERILEY. BED ALARM ON. DECREASED STRENGTH TO RUE/RLE DUE TO SX WITH DECREASED R HAND SUPERVISOR ELECTRONIC TESTING. CONTINUED DECREASED STRENGTH TO LLE D/T SX. REPORTS FEELING FATIGUED WITH ACTIVITY. CURRENTLY WEARING OXYGEN THIS EVENING, DENIES SHORTNESS OF BREATH. DENIES DISCOMFORT AT TIME OF REPORT.
--- NOTE | 2020-02-14 20:18 | NUR ---
REPORTED OFF TO NIGHT NURSE.
--- NOTE | 2020-02-15 00:15 | NUR ---
PATIENT RESTING IN BED AFTER USING BSC, TRANSFERED PER LIFT, WITH NO C/O FROM PATIENT. BED ALARM ON AFTER PUT BACK TO BED. DENIES ANY NEEDS AT THIS TIME.
[2020-02-15 04:29] VITALS: BP 98/58; PULSE 74; TEMP 98.6
--- NOTE | 2020-02-15 07:22 | NUR ---
PATIENT RESTING IN BED DURING CHANGE OF SHIFT REPORT GIVEN TO DAY SHIFT NURSESHREYAS. BED ALARM ON.
--- NOTE | 2020-02-15 14:00 | NUR ---
AT APPROXIMATELY 1400 THIS NURSE RECEIVED A PHONE CALL FROM DR. COREAS'S OFFICE. ORDERS GIVEN TO REMOVE CHHAYA FROM BILATERAL SCALP INCISIONS AND LEAVE NHUNG TODAY.
--- NOTE | 2020-02-15 15:24 | NUR ---
Music Engineer followed up with patient's daughter Eliza about discharge planning. Current plan is for patient to discharge to Eliza's home with home health. SERGIO emailed Eliza list of agencies that serve [place]. Eliza would like to review this list with her daughter, who is a RN. SERGIO also discussed DME needs with Eliza, who advised she would like for order to be sent to [facility] as she will be the one who will be picking up wheelchair for patient. SERGIO also discussed need for shower chair with handles, grab bars, and bedside commode. Eliza advised she will obtain these items. SERGIO will continue to follow.
[2020-02-15 17:20] VITALS: BP 118/54; PULSE 77; TEMP 98.2
--- NOTE | 2020-02-15 18:08 | NUR ---
16 CHHAYA REMOVED FROM RIGHT SCALP INCISION. 16 CHHAYA REMOVED FROM LEFT SCALP INCISION. PATIENT TOLERATED WELL. INCISIONS LEFT NHUNG. PATIENT DENIES ANY NEEDS AT THIS TIME.
--- NOTE | 2020-02-15 19:00 | NUR ---
PATIENT DID WELL WITH THERAPIES TODAY. PATIENTS APPETITE HAS IMPROVED SINCE WEDNESDAY. PATIENT MORE SOCIAL WITH STAFF. PATIENT GIVEN TYLENOL FOR A HEADACHE THIS EVENING. PATIENT DENIES ANY OTHER NEEDS AT THIS TIME.
--- NOTE | 2020-02-15 19:36 | NUR ---
REPORT GIVEN TO FARNAZ WEBB.
--- NOTE | 2020-02-15 20:15 | NUR ---
Received report from FARNAZ Patton. Pt is currently lying in bed talking with her on the phone. Pt has her call light within reach and her bed is in lowest position.
--- NOTE | 2020-02-15 22:45 | NUR ---
Pt did call out at one time requesting to go to the restroom. With 2 person assistance pt was transferred to the bedside commode and she was able to void. Pt is currently back in bed and has her call light within reach. While transferring her she did state that at one point she felt dizzy. After getting back in bed she stated that she felt better.
--- NOTE | 2020-02-16 02:39 | NUR ---
Pt currently sleeping in bed at this time. Pt has her call light within reach and her bed is in lowest position.
[2020-02-16 04:48] VITALS: BP 107/58; PULSE 60; TEMP 98.5
--- NOTE | 2020-02-16 07:28 | NUR ---
Reported off to FARNAZ Patton. Pt is currently sleeping in bed with her call light within reach and her bed is in lowewst position.
--- NOTE | 2020-02-16 16:18 | NUR ---
Supervisor Photoengraving followed up with patient who is agreeable to have order for wheelchair sent to [facility] for her daughter to fruit or nut picker prior to discharge. SERGIO followed up with patient's daughter, Eliza who advised she would fruit or nut picker wheelchair on Wednesday. SERGIO contacted [facility] and faxed order. SERGIO advised that patient will discharge on 02/23/20 and that patient's daughter will fruit or nut picker wheelchair on 02/19/20. Eliza advised that after talking to her daughter, they would like to use [facility] as they can provide speech therapy. SERGIO contacted Pooja at [facility] and faxed referral. Pooja is unsure if they can provide services in [place] but will follow up with SERGIO on Wednesday. SW to continue to follow.
[2020-02-16 16:43] VITALS: BP 121/61; PULSE 105; TEMP 98
--- NOTE | 2020-02-16 19:38 | NUR ---
PATIENT HAD A GOOD DAY. FOOD INTAKE BETTER TODAY. PATIENT IS MORE SOCIAL AND JOKING WITH NURSING STAFF. PATIENT GIVEN PRN TYLENOL IN THE AFTERNOON FOR A HEADACHE. PATIENT RESTING COMFORTABLY IN BED AT THIS TIME AND DENIES ANY PAIN. REPORT GIVEN TO FARNAZ CARDENAS.
--- NOTE | 2020-02-17 04:08 | NUR ---
Patient had uneventful night. Patient got up to the commode one time early in the shift. Patient was assist x 2 to the bedside commode. Patient dependent on staff to assist with toileting. Patient requested Tylenol for pain and has been resting for the remainder of the shift. [place] in scalp have been removed, edges well approximated, two sutures were found in the center of the scalp by the day nurse, those are still in tact.
[2020-02-17 05:49] VITALS: BP 116/53; PULSE 83; TEMP 98.8
[2020-02-17 09:08] VITALS: BP 93/58
--- NOTE | 2020-02-17 13:28 | NUR ---
Patient resting in bed at this time with by her side.
--- NOTE | 2020-02-17 15:14 | NUR ---
Patient reports that she started having shooting pains to her left leg that radiates from knee down to pinky toe. She is also having some uncontrolled jerking to that left foot as well. Patient given prn Tramadol to help with new pain. Patient reported some chest pain this morning that she stated lasted for a few minutes at 7:30 AM this morning. She has a regular heart rate at this time and has had no more episodes of chest pain. Patient states that she has been SOB but oxygen is currently at 98% Room Air. Will continue to monitor.
[2020-02-17 17:40] VITALS: BP 120/62; PULSE 76; TEMP 98.2
--- NOTE | 2020-02-17 20:53 | NUR ---
REGGIE NOTE: PT AOX4. SOFT SPOKEN WITH FLAT AFFECT. DENIES PAIN. MOVES ALL EXTREMITIES MAGDA UPPER EXTREMITIES EQUAL 4/5. LLE 3/5 WITH RLE 2/5. ABLE TO LIFT BOTH LEGS OFF BED. PT ABLE TO TURN SELF BUT STARTED ON TURN SCHEDULE THIS SHIFT. SHE WAS RELUCTANT AND FIDGETED WITH PILLOW UNDER HIP. SOFT SPOT NOTED TO COCCYX, LIGHT BROWN WITH LIGHT PINK CENTER, NICKEL SIZE. NO OPEN AREAS. PT EDUCATED ON PRESSURE PREVENTION. PT APPEARS SAD BUT DENIES IT. REPORTS FEELING "TIRED ALL THE TIME". TOLEERATED PO PILLS WITH APPLE SAUCE. WILL CONT TO MONITOR.
[2020-02-18 05:27] VITALS: BP 123/50; PULSE 70; TEMP 98
--- NOTE | 2020-02-18 07:30 | NUR ---
Bedside shift report received from FARNAZ Alonzo. PT in bed resting on side, denies needs, will continue to monitor.
--- NOTE | 2020-02-18 11:07 | NUR ---
Assessment charted. Pt resting in bed on side, removed final 2 sutures on center scalp as all others have been removed with suture removal kit per patient's request. LUE bruised, LFA INT. Pt weak BLE, used sit to stand lift to get to BSC, urine yellow and clear, pt toelrated well. Alert and oriented, very little motivation to eat, took applesauce with pills and tolerated well. Resting in bed, refuses egg crate mattress. Top of sacrem has small brown healing spot, barrier cream applied. Will continue to monitor.
[2020-02-18 17:54] VITALS: BP 125/54; PULSE 74; TEMP 98.2
--- NOTE | 2020-02-18 18:05 | NUR ---
Pt resting in bed, has been up to bathroom a few times todya, back to bed and pt c/o feeling dizzy. Ate supper really well. Will give bedside shift report to nightshift nurse who will resume care.
--- NOTE | 2020-02-18 20:00 | NUR ---
PATIENT RESTING IN BED DURING CHANGE OF SHIFT REPORT FROM DAY SHIFT NURSECAMERON. BED ALARM ON.
--- NOTE | 2020-02-18 22:57 | NUR ---
PATIENT UP TO BSC X2 PRIOR TO HS, NURSING STAFF USING [id number] LIFT WITH OUT OF BED TRANSFERS FOR PATIENT'S SAFETY DUE TO END OF DAY FATIGUE. BED ALARM ON WHEN IN BED. PATIENT REFUSED PAIN MEDS WHEN OFFERED WITH HS MEDS.
--- NOTE | 2020-02-19 01:21 | NUR ---
PATIENT SLEEPING, DOES NOT AWAKEN WHEN ROOM ENTERED BY STAFF. BREATHING NONLABORED AND EVEN. BED ALARM ONL
[2020-02-19 04:42] VITALS: BP 117/64; PULSE 71; TEMP 98
--- NOTE | 2020-02-19 07:22 | NUR ---
PATIENT SLEEPING IN BED DURING CHANGE OF SHIFT REPORT GIVEN TO DAY SHIFT NURSERILEY. BED ALARM ON.
[2020-02-19 09:00] VITALS: BP 99/72
--- NOTE | 2020-02-19 11:05 | NUR ---
Patient slept in this morning. She doesn't eat much for breakfast. She had a low blood pressure this morning, will discuss with Dr. Vidales regarding BP meds. She took pills whole with water this morning. Denies any questions.
--- NOTE | 2020-02-19 15:37 | NUR ---
Pooja, at [facility], reports that they do not go out to [place]. SERGIO then received a phone call from the patient's daughter, Eliza. Eliza reports that she just received a phone call from [facility] too and they confirmed that that they cannot go out to her home. SERGIO informed Eliza that SERGIO would be contacting the other two home home health agencies on [email or web address]'s list to inquire if they do have ST and go out to [place]. The patient's daughter then became upset. She states that she is upset with the hospital's visitor policy and that the team is recommending PT/OT/ST. She states that this is three different people that have to come into her home. She asked if [facility] in [place] would be an option. SERGIO contacted [facility] and they only have private duty nursing. SERGIO contacted [facility] out of [place]. They report that they do go out to [place] and have PT/OT/ST. SERGIO informed Eliza of this. Eliza appeared upset about having all three disciplines, but was agreeable for SERGIO to send a referral to [facility]. SERGIO faxed the referral. Eliza reports that the patient will be coming home with her on Wednesday. SERGIO notified IPR Director of the daughters complaints and concerns. SERGIO awaiting the home health's screen. SERGIO to continue to follow.
[2020-02-19 17:46] VITALS: BP 111/59; PULSE 74; TEMP 97.8
--- NOTE | 2020-02-19 19:00 | NUR ---
PATIENT SLEEPING IN BED DURING CHANGE OF SHIFT REPORT FROM DAY SHIFT NURSERILEY. BED ALARM ON.
--- NOTE | 2020-02-19 20:00 | NUR ---
PATIENT CONTINUES WITH SOME BLE WEAKNESS THAT WORSENS WITH FATIGUE, NSG NEEDING TO USE SIT/STAND LIFT WITH TRANSFERS FROM BED/BSC/BACK TO BED OR PUT UP IN CHAIR DURING NIGHT. DENIES DISCOMFORT, C/O SOME DIZZINESS, SPEECH CLEAR AND APPROPRIATE, A/O X4, FOLLOWS COMMANDS, NO SEIZURE ACTIVITY OBSERVED SINCE ADMIT TO IPR. BED ALARM ON, WHEN IN BED.
--- NOTE | 2020-02-19 23:38 | NUR ---
HAS WEAKNESS TO BOTH LEGS AND HAND SWITCH REPAIRER ARE UNEQUAL WITH R LESS THAN LEFT. FATIGUES EASILY AND AT NIGHT NURSING USES SIT/STAND LIFT FOR OUT OF BED TRANSFER TO EITHER BSC OR CHAIR THAT PATIENT IS ABLE TO TOLERATE FOR SHORT PERIODS OF TIME. NO C/O DIZZINESS AT THIS TIME. DENIES ANY DISCOMFORT AT THIS TIME. BED ALARM ON WHEN IN BED.
--- NOTE | 2020-02-20 02:41 | NUR ---
PATIENT SLEEPING, DOES NOT AWAKEN WHEN ROOM ENTERED BY STAFF. OBSERVED BREATHING NONLABORED AND EVEN. BED ALARM ON.
[2020-02-20 05:32] VITALS: BP 141/50; PULSE 69; TEMP 97.5
[2020-02-20 09:26] VITALS: BP 115/46
--- NOTE | 2020-02-20 16:34 | NUR ---
[facility] in [place] reports that they do not accept the patient's insurance and are unable to accept the patient. SERGIO then contacted the last home health agency on [email or web address]'s list of home health agencies that serve [place]: [facility]. Shyla, at [facility], reports that fpc/PT are the only disciplines that can go out to [place]. SERGIO notified IPR Director. The team would then recommend outpatient PT/OT/ST. SERGIO contacted and discussed this with the patient's daughter, Eliza. Eliza reports that she would be agreeable to outpatient therapy and would prefer to have it done at [facility]. She states that if the patient is needing fpc, then she would prefer the [facility] in [place]. SERGIO to contact and schedule appointments at [facility]. SERGIO to continue to follow.
[2020-02-20 17:42] VITALS: BP 142/62; PULSE 71; TEMP 98.8
--- NOTE | 2020-02-20 20:00 | NUR ---
PATIENT RESTING IN BED DURING CHANGE OF SHIFT REPORT FROM DAY SHIFT NURSERILEY. PATIENT REPORTS FEELING TIRED, HAS WEAKNESS TO BLE DUE TO FATIGUE FROM FULL DAY OF THERAPY. RIGHT HAND EDUCATIONAL ADMINISTRATION TEACHER WEAKER THAN LEFT BUT ABLE TO USE WALKER WHEN WORKING WITH THERAPY, OBSERVE RUE WEAKNESS WITH FATIGUE. DECREASED STRENGTH TO RIGHT SIDE DUE TO FATIGUE AT END OF DAY. DENIES PAIN AT TIME OF REPORT.
--- NOTE | 2020-02-20 20:25 | NUR ---
Patient attended all therapies today. See new order to change from Mechanical soft to Regular diet. She tolerated meals well today. Patient was a one max assist to the toilet and she wiped herself this shift. Denied any questions. by to see her today.
--- NOTE | 2020-02-21 01:00 | NUR ---
PATIENT SLEEPING, DOES NOT AWAKEN WHEN ROOM ENTERED BY STAFF. BREATHING NONLABORED AND EVEN. BED ALARM ON.
[2020-02-21 05:33] VITALS: BP 141/62; PULSE 71; TEMP 99.1
--- NOTE | 2020-02-21 07:57 | NUR ---
PATIENT UP ON BSC DURING CHANGE OF SHIFT REPORT GIVEN TO DAY SHIFT NURSEBROOKS. BED ALARM ON WHEN IN BED.
[2020-02-21 16:38] VITALS: BP 116/63; PULSE 80; TEMP 99.3
--- NOTE | 2020-02-21 16:51 | NUR ---
SERGIO attempted to meet with the patient to present and review the IPR Team Conference Note. The patient was sleeping. SERGIO then contacted the patient's daughter, Eliza, to review the note. Eliza is in agreeance to the discharge on Wednesday, 02/22, with outpatient PT/OT/ST. She states that she has a FWW, wheelchair, bedside commode and a showerchair for the patient. She had no other concerns for SW. SW to contact [facility] to set up the outpatient therapy. SERGIO to continue to follow.
[2020-02-22 05:04] VITALS: BP 126/53; PULSE 72; TEMP 98.6
--- NOTE | 2020-02-22 09:05 | NUR ---
Pt awake and alert upon entry, no C/O pain at this time, OT in room, shift assessment complete, left Pt call light in reach, bed in lowest position.
--- NOTE | 2020-02-22 11:27 | NUR ---
SERGIO contacted [facility] and secured the patient an outpatient PT/ST appointment on Wednesday, 02/27, at 1000. The salon receptionist reports that they will try and get the patient in for OT that day, otherwise they will schedule an appointment with the patient and family that day for the OT. SERGIO will need to fax the patient's discharge orders to [phone]. SERGIO left a note with the patient's RN of the appointments. SERGIO to continue to follow.
[2020-02-22 18:00] VITALS: BP 136/58; PULSE 73; TEMP 98.7
--- NOTE | 2020-02-22 21:00 | NUR ---
ASSISTED PT 1:1 PIVOT TRANSFER TO [facility]. VOIDED WITH LG SF BROWN BM. NEEDED ASSIST WITH PROFICIENT HYGIENE. RT SIDED WEAKNESS NOTED. UNSTEADY WITH WALKER. RETURNS TO BED. SEIZURE PRECAUTIONS CONTINUES. PT REPORTED RADIATIONS TREATMENT COMPLETED LAST MONTH FOR LUNG CANCER. PT DENIES DYSPNEA. CALL LIGHT IN REACH. BED ALARM SET.
[2020-02-23 05:26] VITALS: BP 99/59; PULSE 97; TEMP 99.1
[2020-02-23 09:59] VITALS: BP 130/65
--- NOTE | 2020-02-23 10:10 | NUR ---
Patient resting in bed, call light in reach watching TV and awaiting discharge this afternoon. Removed peripheral IV line to right forearm. Denies any questions at this time.
[2020-02-23] MEDS ORDERED: ZOLOFT 50MG50 MG PO (11:08)
[2020-02-23] MEDS ORDERED: ANUSOL-HC SUPPO25 MG RC (11:09)
--- NOTE | 2020-02-23 11:38 | NUR ---
Pt reports that she is going to daughter's house today. She offers very limited 1-2 word responses. When asked if she is happy to be going home, she shakes her head no but denies issues or concerns. latex foam worker Magdalene reports that PT/OT/ST have been arranged for home health and now further issues exists.
--- NOTE | 2020-02-23 13:24 | NUR ---
Appointments made today for patient with Elicia Morrison, PCP for 02/29/20 at 10 am; Dr. Dawson, [place] office 04/02/20 at 10 am.
--- NOTE | 2020-02-23 13:48 | NUR ---
Discharge QIM scores were reviewed by the team. Code of 6 chosen for sit to lying was determined by team discussion to be the most usual performance for this patient during the assessment period. Code of 6 chosen for lying to sitting on side of bed was determined by team discussion to be the most usual performance for this patient during the assessment period. Code of 3 chosen for sit to stand was determined by team discussion to be the most usual performance for this patient during the assessment period.--Bea Gonsales, PD
--- NOTE | 2020-02-23 13:51 | NUR ---
SW met with the patient to review discharge plan and to present and explain the IM form to the patient. The patient requested that SW contact her about the form. SERGIO then contacted the patient's , Carlos. Carlos had no other questions or concerns about discharge today. SERGIO read the IM form outloud to Carlos. Carlos verbalized understanding and gave SW approval to sign the form on his behalf. The patient is to discharge to her daughter's home today, 02/22, with outpatient PT/OT/ST at [facility]. SERGIO faxed the patient's discharge orders to [facility]. No additional needs at this time.
--- NOTE | 2020-02-23 16:00 | NUR ---
Patient Health Summary, Discharge Summary, and Home Meds printed and reviewed with patient, and daughter. Stressed importance of follow up appointments. Called prescriptions for metoprolol, lasix, protonix and pravastatin to pharmacy of choice. Belongings gathered by Nohemy including glasses, pj's, clothing red bag and other misc. personal items. Patient transported via wheelchair by Nohemy and seatbelted for ride home with daughter and . Patient and daughter denied questions.
== END 2020-02-23 16:00 | disposition home or self-care (01) | DRG 949 ==
PROVIDERS: Nurse Practitioner Family; Physician Assistant; ADMIT Internal Medicine
DX: S06.5X9D Traumatic subdural hemorrhage with loss of consciousness of unspecified duration, subsequent encounter (principal); J96.11 Chronic respiratory failure with hypoxia; I50.22 Chronic systolic (congestive) heart failure; C34.90 Malignant neoplasm of unspecified part of unspecified bronchus or lung; N39.0 Urinary tract infection, site not specified; W19.XXXD Unspecified fall, subsequent encounter; I48.91 Unspecified atrial fibrillation; I11.0 Hypertensive heart disease with heart failure; R13.10 Dysphagia, unspecified; Z51.5 Encounter for palliative care; F32.9 Major depressive disorder, single episode, unspecified; R33.9 Retention of urine, unspecified; G47.00 Insomnia, unspecified; E78.5 Hyperlipidemia, unspecified; J44.9 Chronic obstructive pulmonary disease, unspecified; I27.20 Pulmonary hypertension, unspecified; B96.89 Other specified bacterial agents as the cause of diseases classified elsewhere; Z79.01 Long term (current) use of anticoagulants; Z79.1 Long term (current) use of non-steroidal anti-inflammatories (NSAID); Z79.891 Long term (current) use of opiate analgesic; Z88.6 Allergy status to analgesic agent; Z95.0 Presence of cardiac pacemaker; Z87.891 Personal history of nicotine dependence; Z90.710 Acquired absence of both cervix and uterus; Z91.81 History of falling
CPT/HCPCS: 99222-AI; 99231-AI; 99232-AI; 99239; J0696; J1650

== ENCOUNTER → 2020-05-28 | Outpatient (CLI) | payer MEDICARE ==
[~2020-05-28] MED LIST changes: +ANUSOL-HC SUPPO25 MG RC; +CALCIUM CARB500 MG PO; +DULCOLAX TAB5 MG PO; +GENTLE LAXATIVE10 MG RC; +KEPPRA 500MG500 MG PO; +LOVENOX 4040 MG/0.4 SQ; +MIRALAX PA17 GM/Dose PO; +NITROSTAT0.4 MG/TAB SL; +OMNICEF 300MG300 MG PO; +PERFOROMIS20 MCG/2 M IH; +PROTONIX 40MG T40 MG PO; +QUALITY CH400 MG/5 M PO; +SENNA-S 50 MG-81 TAB PO; +TYLENOL 325MG325 MG PO; +VENTOLIN0.09 MG IH; +ZOFRAN 4MG T4 MG/TAB PO; +ZOLOFT 50MG50 MG PO
== END ==
LOC: COL.LAB 08:00 → EDSTATUS 05-31 10:30 → SDCO 05-31 10:30
DX: Z20.828 Contact with and (suspected) exposure to other viral communicable diseases (principal)

== ENCOUNTER 2022-01-28 21:45 | Observation (INO) | payer MEDICARE ==
[~2022-01-28] VITALS: Ht 165.1 cm; Wt 52.3 kg
[2022-01-28 23:10] VITALS: BP 164/88; PULSE 94; TEMP 97.7
--- NOTE | 2022-01-28 23:49 | NUR ---
Patient arrived to the unit alert and oriented x 3. VSS, HTN. Denies chest pain, nausea, vomiting, dizziness, lightheadednes. Assessment intake completed.
[2022-01-29 01:38] LABS: COLLECTION METHOD CLEAN CATCH
[2022-01-29 01:51] LABS: MUCOUS Present (NOT PRESENT); PH 5 (5-8); SQUAMOUS EPITHELIAL 0-2 /hpf (0-10); URINE APPEARANCE Clear (CLEAR/HAZY); URINE BACTERIA None Seen /hpf (NONE SEEN); URINE BILIRUBIN Negative (NEGATIVE); URINE BLOOD 1+ (NEGATIVE); URINE COLOR Yellow (YELLOW); URINE GLUCOSE Negative (NEGATIVE); URINE KETONE Negative (NEGATIVE); URINE LEUKOCYTE ESTERASE Negative (NEGATIVE); URINE NITRATE Negative (NEGATIVE); URINE PROTEIN(semi-quant) Negative (NEGATIVE); URINE UROBILINOGEN Negative (NEGATIVE)
[2022-01-29] MEDS ORDERED: LOPRESSOR100 MG PO (02:18)
[2022-01-29] MEDS ORDERED: PRAVACHOL80 MG PO (02:18)
[2022-01-29] MEDS ORDERED: CYMBALTA 30MG30 MG PO (02:18)
[2022-01-29] MEDS ORDERED: DESYREL 50MG50 MG PO (02:19)
--- NOTE | 2022-01-29 03:43 | NUR ---
RT WAS NOTIFIED BY RN THAT AN ABG HAS BEEN ORDERED. I WAS ALSO MADE AWARE THAT PATIENT HAS BEEN STUCK MANY TIMES FOR AN IV AND HAS NOT BEEN SUCCESFUL WITH THEM. AFTER EXPLAINING WHAT THE ABG IS AND WHAT IS USED TO LOOK AT, ADELIA HAS REFUSED.
[2022-01-29 04:03] VITALS: BP 138/86; PULSE 71; TEMP 97.4
[2022-01-29 04:07] LABS: CALCIUM 9.1 mg/dL (8.4-10.2); CREATININE, serum 1.16 mg/dL (0.57-1.11); POTASSIUM 4.2 mmol/L (3.5-4.5)
[2022-01-29 04:08] LABS: TROPONIN-I 0.192 ng/mL (0.00-0.033)
--- NOTE | 2022-01-29 05:40 | NUR ---
TELE RECORDS PATIENT IN AFIB FLUTTER RAPID RATE AT THIS TIME/ NOTIFIES STAFF
--- NOTE | 2022-01-29 06:15 | NUR ---
Patient in afib, HR 90-115. Reported to Lisa, EKG ordered. AFIB with RVR. Continue monitoring.
[2022-01-29] MEDS ORDERED: RT ALBUTER2.5 MG/0.5 IH (07:12)
--- NOTE | 2022-01-29 07:24 | NUR ---
Patient's daugher called and said she will come to visit around 2-230pm with patient's and would like to talk about patients advance directives.
[2022-01-29 08:00] VITALS: BP 105/52; PULSE 77; TEMP 97.9
--- NOTE | 2022-01-29 10:09 | NUR ---
Initial visit; Ariel states she is Anglican and believes in God. She was receptive to prayer. [facility] prayed asking God for healing and special prayers for Ariel's DrFrancine and Care Team. [facility] wished her well.
[2022-01-29 11:43] VITALS: BP 115/80; PULSE 95; TEMP 97.8
[2022-01-29] MEDS ORDERED: D3-5050000 IU PO (15:24)
--- NOTE | 2022-01-29 15:25 | NUR ---
SW met with the patient, her (Greg, ph#[phone]), and daughter (Eliza, ph#[phone]) to discuss discharge plan. The patient lives in [place] with her . Eliza lives six houses down from them. Greg reports that the patient just needs some assistance with getting in and out of the shower and that she has a cane, walker, and wheelchair. The patient also has home health services from [facility]. The patient's PCP is Dr. Yousuf Youssef and she receives her medications [facility]. The patient does not have a DPOA-HC in EMR, but Eliza states that the patient does have one completed and that it designates her and Eliza. The patient plans on returning home with her and resuming services from [facility] upon discharge. SW to continue to follow. *Discharge plan: home with and home health*
[2022-01-29 15:41] VITALS: BP 124/72; PULSE 96; TEMP 97.9
[2022-01-29 21:01] VITALS: BP 130/72; PULSE 104; TEMP 98
[2022-01-30 00:34] VITALS: BP 107/66; PULSE 87; TEMP 98.2
[2022-01-30 04:46] VITALS: BP 109/65; PULSE 86; TEMP 97.9
[2022-01-30 07:41] VITALS: BP 94/76; PULSE 54; TEMP 97.8
--- NOTE | 2022-01-30 08:00 | NUR ---
Patient sitting up in bed, A&Ox4. VSS. IV CDI. Denies pain and discomfort. Call light within reach. Bed alarm on
[2022-01-30 08:17] LABS: BASO % 0.1 % (0.0-2.0); EOS % 0.1 % (0.0-4.0); GRAN # 7.1 K/mm3 (1.4-6.5); GRAN % 72.5 % (42.2-75.2); HEMATOCRIT 39.2 % (37.0-47.0); HEMOGLOBIN 13.1 g/dl (12.5-16.0); LYMPH # 1.7 K/mm3 (1.2-3.4); LYMPH % 17.3 % (20.0-51.0); MEAN CELL VOLUME 99 fl (80.0-100.0); MEAN CORPUSCULAR HEMOGLOBIN 33 pg (27-31); MEAN CORPUSCULAR HGB CONC 33 g/dl (33.0-37.0); MEAN PLATELET VOLUME 9.6 fl (7.4-10.4); MONO % 9.8 % (1.7-9.3); PLATELET COUNT 170 K/mm3 (130-400); RED BLOOD COUNT 3.95 M/mm3 (4.10-5.30); REDCELL DISTRIBUTION WIDTH-CV 12.8 % (11.5-14.5)
[2022-01-30 08:29] LABS: ALBUMIN 3.5 gm/dL (3.4-4.8); BILIRUBIN,TOTAL 0.7 mg/dL (0.2-1.2); CALCIUM 9.5 mg/dL (8.4-10.2); CREATININE, serum 1.05 mg/dL (0.57-1.11); POTASSIUM 4.7 mmol/L (3.5-4.5); TOTAL PROTEIN 6.9 gm/dL (6.2-8.1)
--- NOTE | 2022-01-30 09:30 | NUR ---
Follow-up visit; Patient sitting up eating breakfast and welcomed Help Desk Support who wished her well and stated she didn't want to let patient's breakfast get cold so she would offer God's blessings and leave her to enjoy her food.
[2022-01-30 10:51] LABS: CHOLESTEROL RISK RATIO 3.2
[2022-01-30 11:22] VITALS: BP 125/80; PULSE 71; TEMP 97.4
[2022-01-30 15:52] VITALS: BP 115/69; PULSE 80; TEMP 98.2
[2022-01-30] MEDS ORDERED: PLAVIX 75MG TAB75 MG PO (16:06)
[2022-01-30] MEDS ORDERED: LOPRESSOR 550 MG/TAB PO (16:07)
[2022-01-30] MEDS ORDERED: CORDARONE200 MG/TAB PO (16:10)
--- NOTE | 2022-01-30 16:16 | NUR ---
The patient is to discharge back home with her today, 01/30, and resume services for prison/PT/OT from [facility]. SW notified and faxed orders to Birdie at [facility]. No additional needs at this time.
--- NOTE | 2022-01-30 17:20 | NUR ---
Patient taken by wheelchair to ED entrance, with daughter at the bedside. IV removed, tip intact. Personal belongings with the patient. No further needs expressed.
== END 2022-01-30 17:20 | disposition home health service (06) ==
LOC: MEDICAL 21:45
PROVIDERS: Nurse Practitioner Family; Physician Assistant; ADMIT Internal Medicine
DX: R53.1 Weakness (principal); I21.4 Non-ST elevation (NSTEMI) myocardial infarction; E78.5 Hyperlipidemia, unspecified; I25.10 Atherosclerotic heart disease of native coronary artery without angina pectoris; I11.0 Hypertensive heart disease with heart failure; I50.20 Unspecified systolic (congestive) heart failure; I27.20 Pulmonary hypertension, unspecified; I48.0 Paroxysmal atrial fibrillation; I48.92 Unspecified atrial flutter; J44.9 Chronic obstructive pulmonary disease, unspecified; E44.0 Moderate protein-calorie malnutrition; I08.2 Rheumatic disorders of both aortic and tricuspid valves; Z68.1 Body mass index [BMI] 19.9 or less, adult; D69.6 Thrombocytopenia, unspecified; Z79.51 Long term (current) use of inhaled steroids; Z85.828 Personal history of other malignant neoplasm of skin; Z85.028 Personal history of other malignant neoplasm of stomach; Z79.01 Long term (current) use of anticoagulants; Z95.0 Presence of cardiac pacemaker; Z92.3 Personal history of irradiation; Z79.899 Other long term (current) drug therapy; Z90.3 Acquired absence of stomach [part of]; Z91.19 Patient's noncompliance with other medical treatment and regimen; Z87.891 Personal history of nicotine dependence; Z28.310 Unvaccinated for COVID-19; Z28.9 Immunization not carried out for unspecified reason
CPT/HCPCS: 99223-AI; 99233-AI; 99239; G0378; J1650; J7512; Q9967